=== PATIENT | female | born 1950 | race African-American/Black ===

== ENCOUNTER 2018-12-31 15:59 | Inpatient (IN) | payer MEDICARE, MEDICAID ==
[~2018-12-31] VITALS: Ht 161.3 cm; Wt 65.8 kg
[~2018-12-31 15:59] MED LIST: ASPI-1159 PO; ELAVIL; FERROUS SULFATE; INSU3INS6 SUBCUT; Janumet; MELO-106 PO; OMEP20CA10 PO; TEMA7.5C PO
[2018-12-31] MEDS ORDERED: SODIUM CHLORIDE 0.9% 1,000 ML IV ONE ×2 (16:41→18:30)
[2018-12-31 17:22] LABS: BASOPHILS % 0.9 % (0.0-2.0); EOSINOPHILS % 2.3 % (0.0-5.0); HEMATOCRIT. 28.1 % (36.0-48.0); HEMOGLOBIN. 8.7 g/dL (12.0-16.0); LYMPHOCYTES % 32.9 % (20.0-50.0); MEAN CORPUSCULAR HEMOGLOBIN 27.4 pg (28.0-32.0); MEAN CORPUSCULAR VOLUME 88.2 fL (81.0-99.0); MEAN PLATELET VOLUME 8.9 fl (7.4-10.4); MONOCYTES % 6.6 % (2.0-8.0); NEUTROPHILS % 57.3 % (40.0-76.0); PLATELET 271 x1000/uL (130-400); RED BLOOD CELL COUNT 3.18 mill/uL (4.2-5.4); RED CELL DISTRIBUTION WIDTH 15.2 % (11.6-14.6)
[2018-12-31 17:23] LABS: PROTHROMBIN TIME 9.8 sec (9.1-11.1)
[2018-12-31 17:24] LABS: CHLORIDE 115 mEq/L (98-107)
[2018-12-31 17:48] LABS: CLARITY URINE CLOUDY (CLEAR); COLOR URINE YELLOW (YELLOW); KETONES URINE NEGATIVE (NEGATIVE); LEUKOCYTE ESTERASE URINE 2+ (NEGATIVE); NITRITE URINE POSITIVE (NEGATIVE); OCCULT BLOOD URINE NEGATIVE (NEGATIVE); PROTEIN URINE TRACE (NEGATIVE); SPECIFIC GRAVITY URINE 1.022 (1.005-1.030); UROBILINOGEN URINE 0.2 E.U./dL (0.2-1.0)
[2018-12-31] MEDS ORDERED: LEVOFLOXACIN 750MG PREMIX 150 ML IV ONE (18:30)
[2018-12-31] MEDS ORDERED: GUAIFENESIN 200MG/10ML SUGAR FREE UDC PO PRN (18:45)
[2018-12-31] MEDS ORDERED: ENOXAPARIN 40MG/0.4ML SYR SUBCUT SCH (18:45)
[2018-12-31] MEDS ORDERED: LEVOFLOXACIN 500MG PREMIX 100 ML IV SCH (18:45)
[2018-12-31] MEDS ORDERED: DEXTROSE 50% WATER 50ML SYRINGE IV PRN (18:45)
[2018-12-31] MEDS ORDERED: MAGNESIUM/ALUMINUM HYDROXIDE/SIMETHICONE 30ML UDC PO PRN (18:45)
[2018-12-31] MEDS ORDERED: IPRATROPIUM/ALBUTEROL 0.5-3(2.5)MG/3ML NEB INH PRN (18:45)
[2018-12-31] MEDS ORDERED: DOCUSATE SODIUM 100MG CAPSULE PO PRN (18:45)
[2018-12-31] MEDS ORDERED: NITROGLYCERIN 0.4MG TABLET SL SL PRN (18:45)
[2018-12-31] MEDS ORDERED: CLONIDINE 0.1MG TABLET PO PRN (18:45)
[2018-12-31] MEDS ORDERED: ONDANSETRON HCL 4MG/2ML INJ IV PRN (18:45)
[2018-12-31 19:21] LABS: T4 FREE 0.9 ng/dL (0.76-1.46)
[2018-12-31 19:38] LABS: FOLIC ACID (FOLATE) SERUM 4.9 ng/mL (>5.38)
[2018-12-31] MEDS: TRAMADOL 50MG TABLET PO PRN (20:10)
[2018-12-31 22:15] VITALS: BP 125/80
[2018-12-31] MEDS ORDERED: ZOLPIDEM TARTRATE 5MG TABLET PO PRN (22:46)
[2018-12-31] MEDS: BLOOD SUGAR DIAGNOSTIC STRIP TEST SCH (23:00)
[2018-12-31] MEDS: INSULIN LISPRO 100 UNITS/ML SUBCUT SCH (23:00)
[2019-01-01] MEDS ORDERED: CEFTRIAXONE 1 G PREMIX 50 ML IV SCH
[2019-01-01] MEDS: ASCORBIC ACID 500 MG TABLET PO SCH ×3 (00:01→20:50)
[2019-01-01] MEDS: SODIUM CHLORIDE 0.9% 1,000 ML IV SCH ×3 (00:05→20:52)
[2019-01-01 00:47] LABS: CREATINE KINASE 124 IU/L (26-192)
[2019-01-01 00:48] LABS: CREATINE KINASE MB FRACTION 2.7 ng/mL (0.5-3.6)
[2019-01-01 04:00] VITALS: BP 111/63
[2019-01-01] MEDS: BLOOD SUGAR DIAGNOSTIC STRIP TEST SCH ×3 (06:15→20:48)
[2019-01-01] MEDS: INSULIN LISPRO 100 UNITS/ML SUBCUT SCH ×3 (06:15→20:49)
[2019-01-01 07:19] LABS: CREATINE KINASE 100 IU/L (26-192)
[2019-01-01 07:21] LABS: CREATINE KINASE MB FRACTION 2.4 ng/mL (0.5-3.6)
[2019-01-01 08:00] VITALS: BP 111/63
[2019-01-01] MEDS: ENOXAPARIN 30MG/0.3ML SYR SUBCUT SCH (09:43)
[2019-01-01] MEDS: ZINC SULFATE 220 MG ( 50 ) CAPSULE PO SCH (09:44)
[2019-01-01] MEDS: FAMOTIDINE 20MG TABLET PO SCH (09:44)
[2019-01-01] MEDS: ACETAMINOPHEN 325MG TABLET PO PRN (09:45)
[2019-01-01] MEDS: ASPIRIN 325MG EC TABLET PO SCH (09:52)
[2019-01-01 12:00] VITALS: BP 116/81
[2019-01-01] MEDS ORDERED: FOLIC ACID 1 MG in SODIUM CHLORIDE 0.9% 500 ML IV NR (14:00)
[2019-01-01] MEDS: CEFTRIAXONE 1,000 MG in DEXTROSE 5% WATER 50 ML IV SCH (15:30)
[2019-01-01 16:00] VITALS: BP 128/74
[2019-01-01 20:00] VITALS: BP 145/70
[2019-01-01] MEDS: TRAMADOL 50MG TABLET PO PRN (20:51)
[2019-01-02] VITALS: BP 130/75
[2019-01-02 04:00] VITALS: BP 111/60
[2019-01-02] MEDS: SODIUM CHLORIDE 0.9% 1,000 ML IV SCH ×3 (05:50→21:08)
[2019-01-02] MEDS: ASPIRIN 325MG EC TABLET PO SCH (09:41)
[2019-01-02] MEDS: ZINC SULFATE 220 MG ( 50 ) CAPSULE PO SCH (09:41)
[2019-01-02] MEDS: FOLIC ACID 1MG TABLET PO SCH (09:41)
[2019-01-02] MEDS: FAMOTIDINE 20MG TABLET PO SCH (09:41)
[2019-01-02] MEDS: ASCORBIC ACID 500 MG TABLET PO SCH ×2 (09:41→20:58)
[2019-01-02] MEDS: ENOXAPARIN 30MG/0.3ML SYR SUBCUT SCH (09:42)
[2019-01-02] MEDS: ACETAMINOPHEN 325MG TABLET PO PRN ×2 (09:47→20:57)
[2019-01-02] MEDS: INSULIN LISPRO 100 UNITS/ML SUBCUT SCH ×4 (11:30→21:00)
[2019-01-02] MEDS: BLOOD SUGAR DIAGNOSTIC STRIP TEST SCH ×4 (11:30→21:07)
[2019-01-02] MEDS: CEFTRIAXONE 1,000 MG in DEXTROSE 5% WATER 50 ML IV SCH (12:26)
[2019-01-02 20:00] VITALS: BP 165/85
[2019-01-02] MEDS ORDERED: LEVOFLOXACIN 250MG PREMIX 50 ML IV SCH (21:00)
[2019-01-03] VITALS: BP 159/80
[2019-01-03 04:00] VITALS: BP 155/81
[2019-01-03] MEDS: BLOOD SUGAR DIAGNOSTIC STRIP TEST SCH ×4 (06:01→21:27)
[2019-01-03] MEDS: INSULIN LISPRO 100 UNITS/ML SUBCUT SCH ×4 (07:40→21:00)
[2019-01-03 08:00] VITALS: BP 176/87
[2019-01-03] MEDS: FOLIC ACID 1MG TABLET PO SCH (08:25)
[2019-01-03] MEDS: ENOXAPARIN 30MG/0.3ML SYR SUBCUT SCH (08:25)
[2019-01-03] MEDS: ZINC SULFATE 220 MG ( 50 ) CAPSULE PO SCH (08:25)
[2019-01-03] MEDS: ASCORBIC ACID 500 MG TABLET PO SCH ×2 (08:26→21:20)
[2019-01-03] MEDS: ASPIRIN 325MG EC TABLET PO SCH (08:35)
[2019-01-03] MEDS: FAMOTIDINE 20MG TABLET PO SCH (08:35)
[2019-01-03] MEDS: SODIUM CHLORIDE 0.9% 1,000 ML IV SCH (10:47)
[2019-01-03] MEDS: CEFTRIAXONE 1,000 MG in DEXTROSE 5% WATER 50 ML IV SCH (11:50)
[2019-01-03] MEDS: ACETAMINOPHEN 325MG TABLET PO PRN (18:33)
[2019-01-03 20:00] VITALS: BP 134/83
[2019-01-03] MEDS: TRAMADOL 50MG TABLET PO PRN (21:20)
[2019-01-04] VITALS: BP 133/70
[2019-01-04 04:00] VITALS: BP 135/81
[2019-01-04] MEDS: INSULIN LISPRO 100 UNITS/ML SUBCUT SCH (06:27)
[2019-01-04] MEDS: BLOOD SUGAR DIAGNOSTIC STRIP TEST SCH (06:27)
[2019-01-04 08:00] VITALS: BP 142/77
[2019-01-04] MEDS: ZINC SULFATE 220 MG ( 50 ) CAPSULE PO SCH (08:23)
[2019-01-04] MEDS: FOLIC ACID 1MG TABLET PO SCH (08:23)
[2019-01-04] MEDS: ASCORBIC ACID 500 MG TABLET PO SCH (08:23)
[2019-01-04] MEDS: ENOXAPARIN 30MG/0.3ML SYR SUBCUT SCH (08:23)
[2019-01-04] MEDS: FAMOTIDINE 20MG TABLET PO SCH (08:23)
[2019-01-04] MEDS: ASPIRIN 325MG EC TABLET PO SCH (08:23)
== END 2019-01-04 11:50 | disposition home or self-care (01) | DRG 689 ==
LOC: ER 16:35 → 8WST 18:30 → EDBEDREQ 18:38 → SUPCPDRO 18:39 → ENRESERV 20:49
PROVIDERS: ADMIT Internal Medicine; ATTEND Internal Medicine
DX: N39.0 Urinary tract infection, site not specified (principal); N17.0 Acute kidney failure with tubular necrosis; D63.8 Anemia in other chronic diseases classified elsewhere; E86.0 Dehydration; Z96.659 Presence of unspecified artificial knee joint; E83.51 Hypocalcemia; E11.649 Type 2 diabetes mellitus with hypoglycemia without coma; I10 Essential (primary) hypertension; D52.9 Folate deficiency anemia, unspecified; E83.52 Hypercalcemia; Z79.4 Long term (current) use of insulin; Z86.73 Personal history of transient ischemic attack (TIA), and cerebral infarction without residual deficits; Z98.84 Bariatric surgery status; Z88.0 Allergy status to penicillin; Z88.5 Allergy status to narcotic agent; Z88.8 Allergy status to other drugs, medicaments and biological substances; Z79.84 Long term (current) use of oral hypoglycemic drugs
CPT/HCPCS: 36415; 71045; 82550; 82553; 82607; 82746; 82962; 83540; 83550; 83605; 84439; 84443; 84484; 93005; 93306; 93970; 96374; 96375; 97162; 97166; 99285; C1893; J0696; J1650; J1956; J3490; J7030; J7040; J7060

== ENCOUNTER 2019-01-13 13:40 | Inpatient (IN) | payer MEDICARE, MEDICAID ==
[~2019-01-13] VITALS: Ht 160 cm; Wt 64.6 kg
[2019-01-13 16:14] LABS: BASOPHILS % 0.4 % (0.0-2.0); EOSINOPHILS % 2.5 % (0.0-5.0); HEMATOCRIT. 27.2 % (36.0-48.0); LYMPHOCYTES % 30.6 % (20.0-50.0); MEAN CORPUSCULAR HEMOGLOBIN 28.2 pg (28.0-32.0); MEAN CORPUSCULAR VOLUME 85.1 fL (81.0-99.0); MEAN PLATELET VOLUME 8.5 fl (7.4-10.4); MONOCYTES % 6.9 % (2.0-8.0); NEUTROPHILS % 59.6 % (40.0-76.0); PLATELET 257 x1000/uL (130-400); RED CELL DISTRIBUTION WIDTH 14.6 % (11.6-14.6)
[2019-01-13 16:15] LABS: CHLORIDE 115 mEq/L (98-107)
[2019-01-13] MEDS ORDERED: ONDANSETRON HCL 4MG/2ML INJ IV PRN (18:30)
[2019-01-13] MEDS ORDERED: ACETAMINOPHEN 325MG TABLET PO PRN (18:30)
[2019-01-13] MEDS ORDERED: GUAIFENESIN 200MG/10ML SUGAR FREE UDC PO PRN (18:30)
[2019-01-13] MEDS ORDERED: IPRATROPIUM/ALBUTEROL 0.5-3(2.5)MG/3ML NEB INH PRN (18:30)
[2019-01-13] MEDS ORDERED: NITROGLYCERIN 0.4MG TABLET SL SL PRN (18:30)
[2019-01-13] MEDS ORDERED: MAGNESIUM/ALUMINUM HYDROXIDE/SIMETHICONE 30ML UDC PO PRN (18:30)
[2019-01-13] MEDS ORDERED: DOCUSATE SODIUM 100MG CAPSULE PO PRN (18:30)
[2019-01-13] MEDS ORDERED: TRAMADOL 50MG TABLET PO PRN (18:30)
[2019-01-13] MEDS ORDERED: ZOLPIDEM TARTRATE 5MG TABLET PO PRN (18:30)
[2019-01-13] MEDS ORDERED: CLONIDINE 0.1MG TABLET PO PRN (18:30)
[2019-01-13 18:51] LABS: ETHANOL BLOOD < 10 mg/dL
[2019-01-13 18:54] LABS: LDL CHOLESTEROL 86 mg/dL (5-100)
[2019-01-13 18:56] LABS: HDL CHOLESTEROL 54 mg/dL (40-59)
[2019-01-13] MEDS ORDERED: MVI, ADULT NO.1 10 ML, FOLIC ACID 1 MG, THIAMINE HCL 100 MG in SODIUM CHLORIDE 0.9% 1,0... IV SCH ×4 (20:00)
[2019-01-13 22:00] VITALS: BP 126/72
[2019-01-13] MEDS: FAMOTIDINE 20MG TABLET PO SCH (22:39)
[2019-01-13] MEDS ORDERED: DEXTROSE 50% WATER 50ML SYRINGE IV PRN (22:45)
[2019-01-13] MEDS ORDERED: ENOXAPARIN 30MG/0.3ML SYR SUBCUT SCH (23:00)
[2019-01-14] VITALS: BP 118/63
[2019-01-14] MEDS ORDERED: ASCO-339 PO (00:49)
[2019-01-14] MEDS ORDERED: HYDR25TA PO (00:49)
[2019-01-14] MEDS ORDERED: GABA-531 PO (00:49)
[2019-01-14] MEDS ORDERED: FLEX (00:49)
[2019-01-14] MEDS ORDERED: ESOM40CA53 PO (00:49)
[2019-01-14] MEDS ORDERED: CETI10TA10 PO (00:50)
[2019-01-14] MEDS ORDERED: FLEXERIL PO (00:50)
[2019-01-14 01:11] LABS: CREATINE KINASE 84 IU/L (26-192)
[2019-01-14 01:12] LABS: CREATINE KINASE MB FRACTION 1.3 ng/mL (0.5-3.6)
[2019-01-14 04:00] VITALS: BP 109/66
[2019-01-14 04:56] LABS: CLARITY URINE CLEAR (CLEAR); COLOR URINE YELLOW (YELLOW); KETONES URINE NEGATIVE (NEGATIVE); LEUKOCYTE ESTERASE URINE 2+ (NEGATIVE); NITRITE URINE NEGATIVE (NEGATIVE); OCCULT BLOOD URINE NEGATIVE (NEGATIVE); PH URINE 5.5 (4.5-8.0); PROTEIN URINE NEGATIVE (NEGATIVE); SPECIFIC GRAVITY URINE 1.017 (1.005-1.030); UROBILINOGEN URINE 0.2 E.U./dL (0.2-1.0)
[2019-01-14 05:07] LABS: *AMPHETAMINES SCREEN URINE NEGATIVE (NEGATIVE); *BARBITURATES SCREEN URINE NEGATIVE (NEGATIVE); *BENZODIAZEPINES SCREEN URINE PRESUMTIVE POSITIVE (NEGATIVE); *COCAINE SCREEN URINE NEGATIVE (NEGATIVE); METHADONE URINE SCREEN NEGATIVE (NEGATIVE); OPIATES URINE SCREEN PRESUMTIVE POSITIVE (NEGATIVE); PHENCYCLIDINE URINE SCREEN NEGATIVE (NEGATIVE)
[2019-01-14 05:08] LABS: CANNABINOID URINE SCREEN NEGATIVE (NEGATIVE)
[2019-01-14] MEDS: BLOOD SUGAR DIAGNOSTIC STRIP TEST SCH ×4 (06:19→21:41)
[2019-01-14 07:45] LABS: BASOPHILS % 0.6 % (0.0-2.0); EOSINOPHILS % 3.3 % (0.0-5.0); HEMATOCRIT. 25.2 % (36.0-48.0); HEMOGLOBIN. 8.3 g/dL (12.0-16.0); LYMPHOCYTES % 25.5 % (20.0-50.0); MEAN CORPUSCULAR HEMOGLOBIN 28.1 pg (28.0-32.0); MEAN CORPUSCULAR VOLUME 85.9 fL (81.0-99.0); MEAN PLATELET VOLUME 8.5 fl (7.4-10.4); MONOCYTES % 7.2 % (2.0-8.0); NEUTROPHILS % 63.4 % (40.0-76.0); PLATELET 246 x1000/uL (130-400); RED BLOOD CELL COUNT 2.94 mill/uL (4.2-5.4); RED CELL DISTRIBUTION WIDTH 14.2 % (11.6-14.6)
[2019-01-14] MEDS: INSULIN LISPRO 100 UNITS/ML SUBCUT SCH ×4 (07:50→21:00)
[2019-01-14 08:00] VITALS: BP 109/49
[2019-01-14] MEDS ORDERED: ENOXAPARIN 30MG/0.3ML SYR SUBCUT SCH (09:00)
[2019-01-14] MEDS: ASPIRIN 325MG EC TABLET PO SCH (09:09)
[2019-01-14 09:18] LABS: CHLORIDE 118 mEq/L (98-107)
[2019-01-14 09:27] LABS: CREATINE KINASE 72 IU/L (26-192)
[2019-01-14 09:30] LABS: CREATINE KINASE MB FRACTION 1.1 ng/mL (0.5-3.6)
[2019-01-14] MEDS: SUCRALFATE 1 G/10 ML UDC PO SCH ×3 (11:47→21:41)
[2019-01-14] MEDS ORDERED: PNEUMOCOCCAL 23-VAL P-SAC VAC 0.5 ML IM ONE (12:00)
[2019-01-14 12:22] VITALS: BP 104/57
[2019-01-14 17:09] VITALS: BP 107/61
[2019-01-14 20:31] VITALS: BP 106/55
[2019-01-14] MEDS: FAMOTIDINE 20MG TABLET PO SCH (21:41)
[2019-01-14] MEDS: TEMAZEPAM 15MG CAPSULE PO PRN (21:41)
[2019-01-15 00:43] VITALS: BP 101/53
[2019-01-15 04:00] VITALS: BP 97/57
[2019-01-15] MEDS: BLOOD SUGAR DIAGNOSTIC STRIP TEST SCH ×2 (07:00→21:31)
[2019-01-15] MEDS: INSULIN LISPRO 100 UNITS/ML SUBCUT SCH ×2 (07:00→21:00)
[2019-01-15] MEDS: SUCRALFATE 1 G/10 ML UDC PO SCH ×3 (07:00→21:30)
[2019-01-15] MEDS: ASPIRIN 325MG EC TABLET PO SCH (08:13)
[2019-01-15 08:47] VITALS: BP 102/58
[2019-01-15 12:22] VITALS: BP 105/55
[2019-01-15] MEDS ORDERED: MIDAZOLAM HCL 5 MG/5 ML VIAL ONE (14:09)
[2019-01-15] MEDS ORDERED: FENTANYL CITRATE/PF 50MCG/ML 2ML VIAL ONE (14:10)
[2019-01-15] MEDS ORDERED: MIDAZOLAM HCL 5 MG/5 ML VIAL IV PRN (14:11)
[2019-01-15] MEDS ORDERED: FENTANYL CITRATE/PF 50MCG/ML 2ML VIAL IV PRN (14:12)
[2019-01-15] MEDS ORDERED: SIMETHICONE 40 MG/0.6 ML 30ML ONE (14:13)
[2019-01-15] MEDS ORDERED: SODIUM CHLORIDE 0.9% 10ML VIAL ONE (15:45)
[2019-01-15 16:52] VITALS: BP 112/63
[2019-01-15 20:00] VITALS: BP 119/77
[2019-01-15] MEDS: PANTOPRAZOLE SODIUM 40 MG/VIAL IV SCH (21:31)
[2019-01-16] VITALS: BP 114/47
[2019-01-16] MEDS: TEMAZEPAM 15MG CAPSULE PO PRN ×2 (01:24→23:55)
[2019-01-16 04:00] VITALS: BP 104/52
[2019-01-16] MEDS: SUCRALFATE 1 G/10 ML UDC PO SCH ×4 (06:20→20:10)
[2019-01-16] MEDS: INSULIN LISPRO 100 UNITS/ML SUBCUT SCH ×4 (07:36→20:28)
[2019-01-16] MEDS: BLOOD SUGAR DIAGNOSTIC STRIP TEST SCH ×4 (07:36→20:28)
[2019-01-16 08:00] VITALS: BP 95/53
[2019-01-16] MEDS: PANTOPRAZOLE SODIUM 40 MG/VIAL IV SCH ×2 (08:58→20:10)
[2019-01-16] MEDS: ASPIRIN 325MG EC TABLET PO SCH (08:58)
[2019-01-16 12:00] VITALS: BP 102/55
[2019-01-16 16:00] VITALS: BP 102/64
[2019-01-16 20:00] VITALS: BP 95/65
[2019-01-17] VITALS: BP 107/64
[2019-01-17 04:00] VITALS: BP 115/52
[2019-01-17] MEDS: SUCRALFATE 1 G/10 ML UDC PO SCH ×2 (06:24→12:20)
[2019-01-17] MEDS: BLOOD SUGAR DIAGNOSTIC STRIP TEST SCH ×2 (07:02→12:38)
[2019-01-17] MEDS: INSULIN LISPRO 100 UNITS/ML SUBCUT SCH ×2 (07:12→12:38)
[2019-01-17 08:00] VITALS: BP 111/66
[2019-01-17] MEDS: ASPIRIN 325MG EC TABLET PO SCH (08:58)
[2019-01-17] MEDS: PANTOPRAZOLE SODIUM 40 MG/VIAL IV SCH (08:58)
[2019-01-17 10:06] VITALS: BP 111/66
[2019-01-17 12:00] VITALS: BP 105/60
[2019-01-17] MEDS ORDERED: ENOXAPARIN 30MG/0.3ML SYR SUBCUT SCH (17:00)
== END 2019-01-17 13:52 | disposition home health service (06) | DRG 312 ==
LOC: ER 14:29 → 6WST 17:40 → EDBEDREQ 17:47 → ENRESERV 20:02
PROVIDERS: ADMIT Internal Medicine; ATTEND Internal Medicine
PROC: 0DB58ZX Excision of Esophagus, Via Natural or Artificial Opening Endoscopic, Diagnostic (ICD-10-PCS; principal; 2019-01-15)
DX: R55 Syncope and collapse (principal); N17.0 Acute kidney failure with tubular necrosis; D52.9 Folate deficiency anemia, unspecified; R79.1 Abnormal coagulation profile; N18.9 Chronic kidney disease, unspecified; E11.22 Type 2 diabetes mellitus with diabetic chronic kidney disease; I12.9 Hypertensive chronic kidney disease with stage 1 through stage 4 chronic kidney disease, or unspecified chronic kidney disease; Z96.659 Presence of unspecified artificial knee joint; R13.10 Dysphagia, unspecified; Z79.4 Long term (current) use of insulin; Z98.84 Bariatric surgery status; Z91.81 History of falling; I25.2 Old myocardial infarction; Z86.73 Personal history of transient ischemic attack (TIA), and cerebral infarction without residual deficits; Z90.710 Acquired absence of both cervix and uterus; Z88.0 Allergy status to penicillin; Z88.6 Allergy status to analgesic agent; Z90.49 Acquired absence of other specified parts of digestive tract; Z79.899 Other long term (current) drug therapy
CPT/HCPCS: 36415; 70551; 71045; 71250; 76770; 78582; 80061; 80305; 80320; 82550; 82553; 82962; 83036; 83880; 84484; 85379; 88305; 88312; 90732; 93005; 96365; 96372; 97161; 99285; A9558; C9113; J1650; J2250; J3010; J3411; J3490; J7030; G0480

== ENCOUNTER 2019-05-26 16:54 | Emergency (ER) | payer MEDICARE, MEDICAID ==
[~2019-05-26] VITALS: Ht 160 cm; Wt 63.0 kg
[~2019-05-26 16:54] MED LIST changes: +ASCO-339 PO; -ASPI-1159 PO; +ASPI-1393 PO; +CETI10TA10 PO; -ELAVIL; +ESOM40CA53 PO; -FERROUS SULFATE; +FLEXERIL PO; +GABA-531 PO; +HYDR25TA PO; -Janumet; -OMEP20CA10 PO; +OMEP20CA5 PO
[2019-05-26] MEDS ORDERED: ACETAMINOPHEN WITH CODEINE 300/30MG TABLET PO STA (17:15)
[2019-05-26] MEDS ORDERED: SODIUM CHLORIDE 0.9% 1,000 ML IV ONE (17:15)
[2019-05-26 17:30] LABS: HEMATOCRIT. 30.4 % (36.0-48.0); HEMOGLOBIN. 9.4 g/dL (12.0-16.0); MEAN CORPUSCULAR HEMOGLOBIN 24.1 pg (28.0-32.0); MEAN CORPUSCULAR VOLUME 78.2 fL (81.0-99.0); MEAN PLATELET VOLUME 9.3 fl (7.4-10.4); PLATELET 294 x1000/uL (130-400); RED BLOOD CELL COUNT 3.88 mill/uL (4.2-5.4)
[2019-05-26 17:33] LABS: CHLORIDE 110 mEq/L (98-107)
[2019-05-26 17:53] LABS: PLATELET ESTIMATE NORMAL
[2019-05-26] MEDS ORDERED: ACETAMINOPHEN 325MG TABLET PO ONE (19:30)
[2019-05-26] MEDS ORDERED: POTASSIUM CHLORIDE 20MEQ TABLET SR PO ONE (19:45)
[2019-05-26 20:17] VITALS: BP 142/79
== END 2019-05-26 20:18 | disposition home or self-care (01) ==
LOC: ER 18:02
DX: R55 Syncope and collapse (principal); S00.83XA Contusion of other part of head, initial encounter; E87.6 Hypokalemia; E11.9 Type 2 diabetes mellitus without complications; I11.0 Hypertensive heart disease with heart failure; Z88.0 Allergy status to penicillin; Z88.5 Allergy status to narcotic agent; Z85.07 Personal history of malignant neoplasm of pancreas; Z79.82 Long term (current) use of aspirin; Z86.73 Personal history of transient ischemic attack (TIA), and cerebral infarction without residual deficits; Z79.4 Long term (current) use of insulin; Z90.49 Acquired absence of other specified parts of digestive tract; Z98.84 Bariatric surgery status; W01.0XXA Fall on same level from slipping, tripping and stumbling without subsequent striking against object, initial encounter; Y93.89 Activity, other specified; Y92.018 Other place in single-family (private) house as the place of occurrence of the external cause
CPT/HCPCS: 36415; 70450; 80053; 85025; 93005; 96360; 99284; J7030

== ENCOUNTER 2019-07-27 10:41 | Inpatient (IN) | payer MEDICARE, MEDICAID ==
[~2019-07-27] VITALS: Ht 160 cm; Wt 58.1 kg
[2019-07-27 11:52] LABS: HEMATOCRIT. 32.9 % (36.0-48.0); HEMOGLOBIN. 10.1 g/dL (12.0-16.0); MEAN CORPUSCULAR HEMOGLOBIN 23.1 pg (28.0-32.0); MEAN CORPUSCULAR VOLUME 75.3 fL (81.0-99.0); MEAN PLATELET VOLUME 8.3 fl (7.4-10.4); PLATELET 453 x1000/uL (130-400); RED BLOOD CELL COUNT 4.37 mill/uL (4.2-5.4); RED CELL DISTRIBUTION WIDTH 23.3 % (11.6-14.6)
[2019-07-27 12:00] LABS: CHLORIDE 116 mEq/L (98-107)
[2019-07-27] MEDS ORDERED: METHYLPREDNISOLONE SOD SUCC 125 MG/2 ML VIAL IV STA (12:16)
[2019-07-27] MEDS ORDERED: ALBUTEROL (0.083%) 2.5MG/3ML NEB HHN STA (12:16)
[2019-07-27 12:25] LABS: NUCLEATED RED BLOOD CELLS 20 /100 WBC; PLATELET ESTIMATE INCREASED
[2019-07-27] MEDS ORDERED: SODIUM CHLORIDE 0.9% 1,000 ML IV SCH (12:51)
[2019-07-27 16:00] VITALS: BP 134/82
[2019-07-27] MEDS ORDERED: INSU100I19 SQ (16:23)
[2019-07-27] MEDS ORDERED: METF-414 MT (16:23)
[2019-07-27] MEDS ORDERED: MIRT15TA6 MT (16:23)
[2019-07-27] MEDS ORDERED: DOCU-150 MT (16:23)
[2019-07-27] MEDS ORDERED: LIRA0.6P SQ ×2 (16:23)
[2019-07-27] MEDS ORDERED: ESCI5SOL2 MT (16:25)
[2019-07-27] MEDS ORDERED: ACETAMINOPHEN 325MG TABLET PO PRN (16:30)
[2019-07-27] MEDS ORDERED: DOCUSATE SODIUM 100MG CAPSULE PO PRN (16:30)
[2019-07-27] MEDS ORDERED: DEXTROSE 50% WATER 50ML SYRINGE IV PRN ×2 (16:30)
[2019-07-27] MEDS ORDERED: MAGNESIUM/ALUMINUM HYDROXIDE/SIMETHICONE 30ML UDC PO PRN (16:30)
[2019-07-27] MEDS ORDERED: IPRATROPIUM/ALBUTEROL 0.5-3(2.5)MG/3ML NEB NEB PRN (16:30)
[2019-07-27] MEDS ORDERED: GUAIFENESIN 200MG/10ML SUGAR FREE UDC PO PRN (16:30)
[2019-07-27] MEDS ORDERED: DIPHENHYDRAMINE 50MG/ML VIAL IV PRN (16:30)
[2019-07-27] MEDS ORDERED: CLONIDINE 0.1MG TABLET PO PRN (16:30)
[2019-07-27] MEDS: BLOOD SUGAR DIAGNOSTIC STRIP TEST SCH ×2 (17:10→21:00)
[2019-07-27] MEDS ORDERED: IPRATROPIUM/ALBUTEROL 0.5-3(2.5)MG/3ML NEB HHN PRN (17:30)
[2019-07-27] MEDS: INSULIN LISPRO 100 UNITS/ML SUBCUT SCH ×2 (17:40→21:00)
[2019-07-27] MEDS ORDERED: IOHEXOL-350 100 ML BOTTLE ONE (17:49)
[2019-07-27] MEDS ORDERED: ENOXAPARIN 40MG/0.4ML SYR SUBCUT SCH (18:00)
[2019-07-27] MEDS: ENOXAPARIN 60MG/0.6ML SYR SUBCUT SCH (18:43)
[2019-07-27] MEDS: METFORMIN HCL 500MG TABLET PO SCH (18:43)
[2019-07-27 19:24] LABS: C REACTIVE PROTEIN QUANT 2.2 mg/L (0.0-3.0)
[2019-07-27 20:00] VITALS: BP 168/98
[2019-07-27] MEDS: IPRATROPIUM/ALBUTEROL 0.5-3(2.5)MG/3ML NEB HHN SCH (20:53)
[2019-07-27] MEDS ORDERED: INSULIN GLARGINE UD 100 UNITS/ML SYR SUBCUT SCH (22:00)
[2019-07-27] MEDS: METHYLPREDNISOLONE SOD SUCC 40 MG/ML VIAL IV SCH (22:30)
[2019-07-27] MEDS: MIRTAZAPINE 15MG TABLET PO SCH (22:31)
[2019-07-27] MEDS: LIDOCAINE 5% PATCH TOP SCH (22:31)
[2019-07-27] MEDS: FAMOTIDINE 20MG TABLET PO SCH (22:31)
[2019-07-28] VITALS: BP 134/69
[2019-07-28] MEDS: IPRATROPIUM/ALBUTEROL 0.5-3(2.5)MG/3ML NEB HHN SCH ×6 (00:15→20:40)
[2019-07-28] MEDS ORDERED: TEMAZEPAM 15MG CAPSULE PO PRN (01:30)
[2019-07-28 03:08] LABS: CLARITY URINE CLEAR (CLEAR); COLOR URINE YELLOW (YELLOW); KETONES URINE NEGATIVE (NEGATIVE); LEUKOCYTE ESTERASE URINE NEGATIVE (NEGATIVE); NITRITE URINE NEGATIVE (NEGATIVE); OCCULT BLOOD URINE NEGATIVE (NEGATIVE); PH URINE 5.5 (4.5-8.0); PROTEIN URINE TRACE (NEGATIVE); SPECIFIC GRAVITY URINE 1.054 (1.005-1.030); UROBILINOGEN URINE 0.2 E.U./dL (0.2-1.0)
[2019-07-28 04:00] VITALS: BP 132/79
[2019-07-28] MEDS: ENOXAPARIN 60MG/0.6ML SYR SUBCUT SCH ×2 (05:52→18:12)
[2019-07-28] MEDS: METHYLPREDNISOLONE SOD SUCC 40 MG/ML VIAL IV SCH ×3 (05:52→22:15)
[2019-07-28] MEDS: METFORMIN HCL 500MG TABLET PO SCH ×2 (05:52→18:12)
[2019-07-28] MEDS: KETOROLAC 30MG/ML VIAL IV PRN ×2 (06:00→18:12)
[2019-07-28] MEDS: BLOOD SUGAR DIAGNOSTIC STRIP TEST SCH ×4 (06:42→21:00)
[2019-07-28] MEDS: INSULIN LISPRO 100 UNITS/ML SUBCUT SCH ×4 (06:47→21:00)
[2019-07-28 06:57] LABS: HEMATOCRIT. 30.5 % (36.0-48.0); HEMOGLOBIN. 9.5 g/dL (12.0-16.0); MEAN CORPUSCULAR HEMOGLOBIN 23.1 pg (28.0-32.0); MEAN CORPUSCULAR VOLUME 74.6 fL (81.0-99.0); MEAN PLATELET VOLUME 8.7 fl (7.4-10.4); PLATELET 410 x1000/uL (130-400); RED CELL DISTRIBUTION WIDTH 23.3 % (11.6-14.6)
[2019-07-28 07:05] LABS: PROTHROMBIN TIME 10.6 sec (9.6-11.0)
[2019-07-28 08:00] VITALS: BP 134/74
[2019-07-28] MEDS: CETIRIZINE 10MG TABLET PO SCH (09:26)
[2019-07-28] MEDS: AMLODIPINE 5MG TABLET PO SCH (09:27)
[2019-07-28] MEDS: LIDOCAINE 5% PATCH TOP SCH (09:27)
[2019-07-28 09:36] LABS: CHLORIDE 115 mEq/L (98-107)
[2019-07-28 09:45] LABS: PHOSPHORUS 3.5 mg/dL (2.5-4.9)
[2019-07-28 11:14] LABS: NUCLEATED RED BLOOD CELLS 22 /100 WBC; PLATELET ESTIMATE NORMAL
[2019-07-28 16:00] VITALS: BP 114/60
[2019-07-28 20:00] VITALS: BP 126/74
[2019-07-28] MEDS: FAMOTIDINE 20MG TABLET PO SCH (21:51)
[2019-07-28] MEDS: MIRTAZAPINE 15MG TABLET PO SCH (22:19)
[2019-07-29] VITALS: BP 116/62
[2019-07-29] MEDS: IPRATROPIUM/ALBUTEROL 0.5-3(2.5)MG/3ML NEB HHN SCH ×6 (00:58→20:45)
[2019-07-29 04:00] VITALS: BP 129/77
[2019-07-29] MEDS: BLOOD SUGAR DIAGNOSTIC STRIP TEST SCH ×4 (05:40→20:57)
[2019-07-29] MEDS: INSULIN LISPRO 100 UNITS/ML SUBCUT SCH ×4 (05:41→21:00)
[2019-07-29] MEDS: ENOXAPARIN 60MG/0.6ML SYR SUBCUT SCH ×2 (05:41→17:22)
[2019-07-29] MEDS: METHYLPREDNISOLONE SOD SUCC 40 MG/ML VIAL IV SCH ×3 (06:37→22:35)
[2019-07-29 07:29] LABS: HEMATOCRIT. 30.6 % (36.0-48.0); HEMOGLOBIN. 9.2 g/dL (12.0-16.0); MEAN CORPUSCULAR HEMOGLOBIN 22.5 pg (28.0-32.0); MEAN CORPUSCULAR VOLUME 75.1 fL (81.0-99.0); MEAN PLATELET VOLUME 8.7 fl (7.4-10.4); PLATELET 407 x1000/uL (130-400); RED BLOOD CELL COUNT 4.07 mill/uL (4.2-5.4); RED CELL DISTRIBUTION WIDTH 23.8 % (11.6-14.6)
[2019-07-29 08:00] VITALS: BP 130/79
[2019-07-29] MEDS: AMLODIPINE 5MG TABLET PO SCH (08:24)
[2019-07-29] MEDS: KETOROLAC 30MG/ML VIAL IV PRN ×2 (08:24)
[2019-07-29] MEDS: CETIRIZINE 10MG TABLET PO SCH (08:24)
[2019-07-29] MEDS: LIDOCAINE 5% PATCH TOP SCH (08:24)
[2019-07-29] MEDS: METFORMIN HCL 500MG TABLET PO SCH ×2 (08:24→17:22)
[2019-07-29 09:55] LABS: NUCLEATED RED BLOOD CELLS 16 /100 WBC; PLATELET ESTIMATE SLIGHTLY INCREASED
[2019-07-29 12:00] VITALS: BP 127/83
[2019-07-29 13:10] LABS: ANTI-NUCLEAR ANTIBODIES DIRECT Negative (Negative)
[2019-07-29 16:36] VITALS: BP 120/74
[2019-07-29 16:46] LABS: PHOSPHORUS 2.3 mg/dL (2.5-4.9)
[2019-07-29 20:00] VITALS: BP 129/69
[2019-07-29] MEDS: MIRTAZAPINE 15MG TABLET PO SCH (21:04)
[2019-07-29] MEDS: FAMOTIDINE 20MG TABLET PO SCH (21:04)
[2019-07-30] MEDS: IPRATROPIUM/ALBUTEROL 0.5-3(2.5)MG/3ML NEB HHN SCH ×4 (02:53→12:00)
[2019-07-30 03:50] VITALS: BP 134/64
[2019-07-30] MEDS: BLOOD SUGAR DIAGNOSTIC STRIP TEST SCH ×2 (05:44→12:14)
[2019-07-30 05:50] VITALS: BP 135/77
[2019-07-30] MEDS: METHYLPREDNISOLONE SOD SUCC 40 MG/ML VIAL IV SCH (05:59)
[2019-07-30] MEDS: ENOXAPARIN 60MG/0.6ML SYR SUBCUT SCH (06:02)
[2019-07-30] MEDS: INSULIN LISPRO 100 UNITS/ML SUBCUT SCH ×2 (06:25→12:14)
[2019-07-30] MEDS: AMLODIPINE 5MG TABLET PO SCH (08:47)
[2019-07-30] MEDS: CETIRIZINE 10MG TABLET PO SCH (08:47)
[2019-07-30] MEDS: METFORMIN HCL 500MG TABLET PO SCH (08:47)
[2019-07-30] MEDS: LIDOCAINE 5% PATCH TOP SCH (08:49)
[2019-07-30 12:38] VITALS: BP 122/68
[2019-07-30 13:11] LABS: ANTI-MYELOPEROXIDASE AB < 9.0 U/mL (0.0-9.0); ANTI-PROTEINASE 3 ABS < 3.5 U/mL (0.0-3.5); ATYPICAL P-ANCA <1:20 titer (Neg:<1:20); CYTOPLASMIC C-ANCA <1:20 titer (Neg:<1:20); PERINUCLEAR P-ANCA <1:20 titer (Neg:<1:20)
== END 2019-07-30 13:16 | disposition home or self-care (01) | DRG 175 ==
LOC: ER 10:51 → 8WST 12:51 → ENRESERV 14:36
PROVIDERS: ADMIT Family Medicine Adult Medicine; ATTEND Family Medicine Adult Medicine
DX: I26.99 Other pulmonary embolism without acute cor pulmonale (principal); J96.00 Acute respiratory failure, unspecified whether with hypoxia or hypercapnia; D50.9 Iron deficiency anemia, unspecified; D52.9 Folate deficiency anemia, unspecified; N18.9 Chronic kidney disease, unspecified; J84.10 Pulmonary fibrosis, unspecified; J43.9 Emphysema, unspecified; E11.22 Type 2 diabetes mellitus with diabetic chronic kidney disease; Z96.659 Presence of unspecified artificial knee joint; M54.5 Low back pain; I27.21 Secondary pulmonary arterial hypertension; I12.9 Hypertensive chronic kidney disease with stage 1 through stage 4 chronic kidney disease, or unspecified chronic kidney disease; I25.10 Atherosclerotic heart disease of native coronary artery without angina pectoris; Z82.49 Family history of ischemic heart disease and other diseases of the circulatory system; Z86.73 Personal history of transient ischemic attack (TIA), and cerebral infarction without residual deficits; Z86.718 Personal history of other venous thrombosis and embolism; I25.2 Old myocardial infarction; Z98.84 Bariatric surgery status; Z95.828 Presence of other vascular implants and grafts; Z90.49 Acquired absence of other specified parts of digestive tract; Z88.0 Allergy status to penicillin; Z88.5 Allergy status to narcotic agent; Z86.711 Personal history of pulmonary embolism; Z82.3 Family history of stroke; Z88.8 Allergy status to other drugs, medicaments and biological substances; Z88.6 Allergy status to analgesic agent; Z79.899 Other long term (current) drug therapy; Z79.4 Long term (current) use of insulin; Z79.82 Long term (current) use of aspirin
CPT/HCPCS: 36415; 71045; 71275; 80048; 81003; 82962; 83036; 83520; 83735; 83880; 84100; 84484; 84550; 85379; 85651; 86038; 86140; 86256; 86431; 93005; 93306; 93970; 94640; 97162; 97166; 99285; J1200; J1650; J1815; J1885; J2920; J2930; J7030; J7611; J7620; Q9967

== ENCOUNTER 2019-09-14 10:34 | Inpatient (IN) | payer MEDICARE, MEDICAID ==
[~2019-09-14] VITALS: Ht 160 cm; Wt 53.1 kg
[~2019-09-14 10:34] MED LIST changes: -ASCO-339 PO; -ASPI-1393 PO; +DOCU-150 MT; +ESCI5SOL2 MT; -FLEXERIL PO; -GABA-531 PO; -HYDR25TA PO; +INSU100I19 SQ; -INSU3INS6 SUBCUT; +LIRA0.6P SQ; -MELO-106 PO; +METF-414 MT; +MIRT15TA6 MT; -OMEP20CA5 PO
[2019-09-14] MEDS ORDERED: ALBUTEROL (0.083%) 2.5MG/3ML NEB HHN STA (10:55)
[2019-09-14] MEDS ORDERED: MAGNESIUM 2 G PREMIX 50 ML IV STA (10:55)
[2019-09-14] MEDS ORDERED: METHYLPREDNISOLONE SOD SUCC 125 MG/2 ML VIAL IV STA (10:55)
[2019-09-14] MEDS ORDERED: IPRATROPIUM BROMIDE (0.02%) 0.5MG/2.5ML NEB HHN STA (10:55)
[2019-09-14 11:37] LABS: HEMATOCRIT. 34.1 % (36.0-48.0); HEMOGLOBIN. 10.3 g/dL (12.0-16.0); MEAN CORPUSCULAR HEMOGLOBIN 23.3 pg (28.0-32.0); MEAN CORPUSCULAR VOLUME 76.9 fL (81.0-99.0); MEAN PLATELET VOLUME 9.2 fl (7.4-10.4); PLATELET 172 x1000/uL (130-400); RED BLOOD CELL COUNT 4.43 mill/uL (4.2-5.4); RED CELL DISTRIBUTION WIDTH 25.7 % (11.6-14.6)
[2019-09-14 11:38] LABS: CHLORIDE 113 mEq/L (98-107)
[2019-09-14] MEDS ORDERED: IPRATROPIUM/ALBUTEROL 0.5-3(2.5)MG/3ML NEB HHN PRN (12:00)
[2019-09-14] MEDS: IPRATROPIUM/ALBUTEROL 0.5-3(2.5)MG/3ML NEB HHN SCH ×2 (12:00→16:00)
[2019-09-14] MEDS ORDERED: METHYLPREDNISOLONE SOD SUCC 40 MG/ML VIAL IV SCH (12:00)
[2019-09-14] MEDS ORDERED: GUAIFENESIN-DM 200MG-20MG/10ML UDC PO PRN (12:00)
[2019-09-14] MEDS ORDERED: ONDANSETRON HCL 4MG/2ML INJ IV PRN (12:00)
[2019-09-14 12:46] LABS: PLATELET ESTIMATE NORMAL
[2019-09-14] MEDS ORDERED: DEXTROSE 50% WATER 50ML SYRINGE IV ONE (13:00)
[2019-09-14 16:50] LABS: PHOSPHORUS 2.6 mg/dL (2.5-4.9)
[2019-09-14 17:18] LABS: D-DIMER 0.32 mg/L FEU (<0.50); PARTIAL THROMBOPLASTIN TIME 28.7 sec (23.4-31.0); PROTHROMBIN TIME 10.4 sec (9.6-11.0)
[2019-09-14 17:21] LABS: VITAMIN B12 SERUM 394 pg/mL (211-911)
[2019-09-14 17:45] LABS: FERRITIN 50 ng/mL (10-291)
[2019-09-14 18:13] VITALS: BP 141/87
[2019-09-14] MEDS: METHYLPREDNISOLONE SOD SUCC 40 MG/ML VIAL IV SCH (18:38)
[2019-09-14] MEDS: DIATR MEGLU/DIATRIZOATE SOLN 30ML PO NR ×2 (18:58→20:11)
[2019-09-14] MEDS ORDERED: MAGNESIUM 2 G PREMIX 50 ML IV NR (19:00)
[2019-09-14 20:00] VITALS: BP 131/92
[2019-09-14] MEDS: LORATADINE 10MG TABLET PO SCH (20:12)
[2019-09-14] MEDS: FLUTICASONE PROPIONATE 50MCG/SPRAY BOTTLE BOTHNSTRLS SCH (20:12)
[2019-09-14] MEDS: FAMOTIDINE 20MG/2ML VIAL IV SCH (20:12)
[2019-09-14] MEDS: APIXABAN 5 MG TABLET PO SCH (22:32)
[2019-09-14] MEDS ORDERED: IOHEXOL-350 100 ML BOTTLE ONE (23:28)
[2019-09-15] VITALS: BP 134/86
[2019-09-15] MEDS: TEMAZEPAM 15MG CAPSULE PO PRN (00:50)
[2019-09-15] MEDS: METHYLPREDNISOLONE SOD SUCC 40 MG/ML VIAL IV SCH ×3 (03:43→18:02)
[2019-09-15 04:00] VITALS: BP 140/89
[2019-09-15 05:51] LABS: HEMATOCRIT. 28.9 % (36.0-48.0); MEAN CORPUSCULAR HEMOGLOBIN 23.5 pg (28.0-32.0); MEAN PLATELET VOLUME 9.4 fl (7.4-10.4); PLATELET 147 x1000/uL (130-400); RED BLOOD CELL COUNT 3.85 mill/uL (4.2-5.4); RED CELL DISTRIBUTION WIDTH 25.6 % (11.6-14.6)
[2019-09-15 05:58] LABS: CHLORIDE 108 mEq/L (98-107)
[2019-09-15] MEDS: ACETAMINOPHEN 325MG TABLET PO PRN ×3 (06:41→21:38)
[2019-09-15 07:43] LABS: CLARITY URINE CLEAR (CLEAR); COLOR URINE YELLOW (YELLOW); KETONES URINE NEGATIVE (NEGATIVE); LEUKOCYTE ESTERASE URINE TRACE (NEGATIVE); NITRITE URINE NEGATIVE (NEGATIVE); OCCULT BLOOD URINE NEGATIVE (NEGATIVE); PH URINE 5.5 (4.5-8.0); PROTEIN URINE NEGATIVE (NEGATIVE); SPECIFIC GRAVITY URINE 1.036 (1.005-1.030); UROBILINOGEN URINE 0.2 E.U./dL (0.2-1.0)
[2019-09-15] MEDS ORDERED: DEXTROSE 50% WATER 50ML SYRINGE IV PRN (07:45)
[2019-09-15 08:00] VITALS: BP 134/92
[2019-09-15 08:04] LABS: *AMPHETAMINES SCREEN URINE NEGATIVE (NEGATIVE); *BARBITURATES SCREEN URINE NEGATIVE (NEGATIVE)
[2019-09-15 08:05] LABS: *BENZODIAZEPINES SCREEN URINE NEGATIVE (NEGATIVE); *COCAINE SCREEN URINE NEGATIVE (NEGATIVE); CANNABINOID URINE SCREEN NEGATIVE (NEGATIVE); METHADONE URINE SCREEN NEGATIVE (NEGATIVE); OPIATES URINE SCREEN NEGATIVE (NEGATIVE); PHENCYCLIDINE URINE SCREEN NEGATIVE (NEGATIVE)
[2019-09-15] MEDS: FAMOTIDINE 20MG/2ML VIAL IV SCH ×2 (08:49→21:38)
[2019-09-15] MEDS: APIXABAN 5 MG TABLET PO SCH ×2 (08:49→18:02)
[2019-09-15] MEDS: ASPIRIN 81MG TABLET PO SCH (08:50)
[2019-09-15] MEDS: FLUTICASONE PROPIONATE 50MCG/SPRAY BOTTLE BOTHNSTRLS SCH ×2 (10:11→21:37)
[2019-09-15 12:00] VITALS: BP 129/84
[2019-09-15] MEDS: BLOOD SUGAR DIAGNOSTIC STRIP TEST SCH ×3 (13:16→21:38)
[2019-09-15] MEDS: IPRATROPIUM/ALBUTEROL 0.5-3(2.5)MG/3ML NEB HHN SCH ×3 (13:55→21:18)
[2019-09-15 16:00] VITALS: BP 117/78
[2019-09-15 16:06] LABS: PLATELET ESTIMATE NORMAL
[2019-09-15] MEDS ORDERED: LIRA0.6P SQ (16:07)
[2019-09-15] MEDS ORDERED: ALBU18HF2 IH (16:08)
[2019-09-15] MEDS ORDERED: APIX5TAB MT (16:09)
[2019-09-15 20:00] VITALS: BP 130/84
[2019-09-15] MEDS: LORATADINE 10MG TABLET PO SCH (21:38)
[2019-09-16] MEDS: TEMAZEPAM 15MG CAPSULE PO PRN (00:14)
[2019-09-16 00:15] VITALS: BP 129/79
[2019-09-16] MEDS: IPRATROPIUM/ALBUTEROL 0.5-3(2.5)MG/3ML NEB HHN SCH ×3 (01:11→09:06)
[2019-09-16] MEDS: METHYLPREDNISOLONE SOD SUCC 40 MG/ML VIAL IV SCH ×2 (03:54→11:39)
[2019-09-16 03:58] VITALS: BP 107/66
[2019-09-16 06:42] LABS: HEMATOCRIT. 28.8 % (36.0-48.0); HEMOGLOBIN. 9.1 g/dL (12.0-16.0); MEAN CORPUSCULAR HEMOGLOBIN 23.5 pg (28.0-32.0); MEAN CORPUSCULAR VOLUME 74.7 fL (81.0-99.0); MEAN PLATELET VOLUME 9.6 fl (7.4-10.4); PLATELET 148 x1000/uL (130-400); RED BLOOD CELL COUNT 3.86 mill/uL (4.2-5.4); RED CELL DISTRIBUTION WIDTH 25.2 % (11.6-14.6)
[2019-09-16] MEDS: BLOOD SUGAR DIAGNOSTIC STRIP TEST SCH ×2 (06:49→12:38)
[2019-09-16 08:04] VITALS: BP 132/83
[2019-09-16] MEDS: ASPIRIN 81MG TABLET PO SCH (09:00)
[2019-09-16] MEDS: FAMOTIDINE 20MG/2ML VIAL IV SCH (09:13)
[2019-09-16] MEDS: APIXABAN 5 MG TABLET PO SCH (09:14)
[2019-09-16] MEDS: FLUTICASONE PROPIONATE 50MCG/SPRAY BOTTLE BOTHNSTRLS SCH (09:14)
[2019-09-16 11:54] VITALS: BP 136/85
[2019-09-16 12:00] LABS: PLATELET ESTIMATE NORMAL
[2019-09-16] MEDS ORDERED: FLUT1DIS3 INH (13:01)
[2019-09-16 13:22] VITALS: BP 136/85
[2019-09-23 05:10] LABS: VITAMIN B1 THIAMINE WHOLE BLD 52.6 nmol/L (66.5-200.0)
== END 2019-09-16 14:25 | disposition home or self-care (01) | DRG 189 ==
LOC: ER 10:34 → 6WST 11:54 → EDBEDREQ 12:05 → ENRESERV 15:20
PROVIDERS: ADMIT Family Medicine Adult Medicine; ATTEND Family Medicine Adult Medicine
DX: J96.00 Acute respiratory failure, unspecified whether with hypoxia or hypercapnia (principal); N17.0 Acute kidney failure with tubular necrosis; I13.0 Hypertensive heart and chronic kidney disease with heart failure and stage 1 through stage 4 chronic kidney disease, or unspecified chronic kidney disease; J44.1 Chronic obstructive pulmonary disease with (acute) exacerbation; K52.9 Noninfective gastroenteritis and colitis, unspecified; I50.9 Heart failure, unspecified; J00 Acute nasopharyngitis [common cold]; N18.9 Chronic kidney disease, unspecified; I25.10 Atherosclerotic heart disease of native coronary artery without angina pectoris; D50.9 Iron deficiency anemia, unspecified; D52.9 Folate deficiency anemia, unspecified; E11.22 Type 2 diabetes mellitus with diabetic chronic kidney disease; E11.649 Type 2 diabetes mellitus with hypoglycemia without coma; E87.8 Other disorders of electrolyte and fluid balance, not elsewhere classified; F32.9 Major depressive disorder, single episode, unspecified; Z96.651 Presence of right artificial knee joint; J43.9 Emphysema, unspecified; Z98.84 Bariatric surgery status; Z88.6 Allergy status to analgesic agent; Z79.01 Long term (current) use of anticoagulants; Z86.73 Personal history of transient ischemic attack (TIA), and cerebral infarction without residual deficits; Z86.711 Personal history of pulmonary embolism; I25.2 Old myocardial infarction; Z88.0 Allergy status to penicillin; Z86.718 Personal history of other venous thrombosis and embolism; Z79.84 Long term (current) use of oral hypoglycemic drugs; Z88.8 Allergy status to other drugs, medicaments and biological substances; Z79.4 Long term (current) use of insulin; Z79.899 Other long term (current) drug therapy; Z90.49 Acquired absence of other specified parts of digestive tract
CPT/HCPCS: 36415; 71045; 71275; 74018; 74176; 80048; 80053; 80076; 80305; 81003; 82105; 82270; 82378; 82607; 82652; 82728; 82962; 83540; 83550; 83735; 83880; 83970; 84075; 84100; 84207; 84425; 84484; 85025; 85379; 86301; 86304; 87015; 87045; 87427; 87449; 87493; 93005; 93970; 94640; 99291; J2405; J2920; J2930; J3475; J3490; J7611; J7620; Q9963; Q9967

== ENCOUNTER 2020-01-07 15:56 | Emergency (ER) | payer MEDICARE, MEDICAID ==
[~2020-01-07] VITALS: Ht 160 cm; Wt 63.0 kg
[~2020-01-07 15:56] MED LIST changes: +ALBU18HF2 IH; +APIX5TAB MT; -ESOM40CA53 PO; +FLUT1DIS3 INH; -INSU100I19 SQ; -TEMA7.5C PO
[2020-01-07] MEDS ORDERED: ALBUTEROL (0.083%) 2.5MG/3ML NEB HHN STA (17:14)
[2020-01-07] MEDS ORDERED: ONDANSETRON HCL 4MG/2ML INJ IV STA (17:14)
[2020-01-07] MEDS ORDERED: IPRATROPIUM BROMIDE (0.02%) 0.5MG/2.5ML NEB HHN STA (17:14)
[2020-01-07 17:35] LABS: CHLORIDE 117 mEq/L (98-107)
[2020-01-07 17:37] LABS: HEMATOCRIT. 33.2 % (36.0-48.0); HEMOGLOBIN. 10.8 g/dL (12.0-16.0); MEAN CORPUSCULAR HEMOGLOBIN 27.9 pg (28.0-32.0); MEAN CORPUSCULAR VOLUME 85.8 fL (81.0-99.0); MEAN PLATELET VOLUME 8.4 fl (7.4-10.4); PLATELET 255 x1000/uL (130-400); RED BLOOD CELL COUNT 3.86 mill/uL (4.2-5.4); RED CELL DISTRIBUTION WIDTH 20.2 % (11.6-14.6)
[2020-01-07 18:05] LABS: PLATELET ESTIMATE NORMAL
[2020-01-07] MEDS ORDERED: SODIUM CHLORIDE 0.9% 500 ML IV ONE (19:45)
[2020-01-07 21:00] VITALS: BP 128/98
== END 2020-01-07 21:10 | disposition home or self-care (01) ==
LOC: ER 15:56
DX: J44.9 Chronic obstructive pulmonary disease, unspecified (principal); R55 Syncope and collapse; R06.00 Dyspnea, unspecified; R42 Dizziness and giddiness; I25.2 Old myocardial infarction; E11.9 Type 2 diabetes mellitus without complications; I11.9 Hypertensive heart disease without heart failure; Z86.73 Personal history of transient ischemic attack (TIA), and cerebral infarction without residual deficits; Z79.899 Other long term (current) drug therapy; Z88.8 Allergy status to other drugs, medicaments and biological substances; Z88.0 Allergy status to penicillin; Z88.6 Allergy status to analgesic agent
CPT/HCPCS: 36415; 71045; 80053; 83880; 84443; 84484; 85025; 93005; 94640; 96361; 96374; 99285; J2405

== ENCOUNTER 2022-09-25 12:59 | Inpatient (IN) | payer OTHER, MEDICAID ==
[~2022-09-25] VITALS: Ht 160 cm; Wt 79.4 kg
[~2022-09-25 12:59] MED LIST changes: -CETI10TA10 PO; +CETI10TA11 PO; +MIRT-89 MT; -MIRT15TA6 MT
[2022-09-25] MEDS ORDERED: SODIUM CHLORIDE 0.9% 1,000 ML IV ONE ×2 (13:30→19:00)
[2022-09-25 14:47] LABS: HEMATOCRIT. 27.7 % (36.0-48.0); HEMOGLOBIN. 8.9 g/dL (12.0-16.0); MEAN CORPUSCULAR HEMOGLOBIN 28.1 pg (28.0-32.0); MEAN CORPUSCULAR VOLUME 87.3 fL (81.0-99.0); MEAN PLATELET VOLUME 8.6 fl (7.4-10.4); PLATELET 345 x1000/uL (130-400); RED BLOOD CELL COUNT 3.17 mill/uL (4.2-5.4); RED CELL DISTRIBUTION WIDTH 15.4 % (11.6-14.6)
[2022-09-25 14:54] LABS: CHLORIDE 114 mEq/L (98-107)
[2022-09-25 16:12] LABS: PLATELET ESTIMATE NORMAL
[2022-09-25 16:48] LABS: CLARITY URINE CLEAR (CLEAR); COLOR URINE YELLOW (YELLOW); KETONES URINE NEGATIVE (NEGATIVE); LEUKOCYTE ESTERASE URINE 2+ (NEGATIVE); NITRITE URINE NEGATIVE (NEGATIVE); OCCULT BLOOD URINE NEGATIVE (NEGATIVE); PH URINE 5.5 (4.5-8.0); PROTEIN URINE NEGATIVE (NEGATIVE); SPECIFIC GRAVITY URINE 1.014 (1.005-1.030); UROBILINOGEN URINE 0.2 E.U./dL (0.2-1.0)
[2022-09-25] MEDS ORDERED: LEVOFLOXACIN 750MG PREMIX 150 ML IV ONE (17:45)
[2022-09-25 22:45] VITALS: BP 123/84
[2022-09-26] VITALS: BP 126/79
[2022-09-26] MEDS ORDERED: ACETAMINOPHEN 325MG TABLET PO PRN ×2 (01:15→13:45)
[2022-09-26] MEDS ORDERED: IPRATROPIUM/ALBUTEROL 0.5-3(2.5)MG/3ML NEB HHN PRN (01:45)
[2022-09-26] MEDS ORDERED: DOCUSATE SODIUM 100MG CAPSULE PO PRN (01:45)
[2022-09-26] MEDS ORDERED: LORAZEPAM 0.5MG TABLET PO PRN (01:45)
[2022-09-26] MEDS ORDERED: CLONIDINE 0.1MG TABLET PO PRN (01:45)
[2022-09-26] MEDS ORDERED: CEFTRIAXONE 1 G PREMIX 50 ML IV SCH (01:45)
[2022-09-26] MEDS ORDERED: SODIUM CHLORIDE 0.9% 1,000 ML IV SCH (02:30)
[2022-09-26] MEDS ORDERED: DEXTROSE 50% WATER 50ML SYRINGE IV PRN (03:00)
[2022-09-26 04:00] VITALS: BP 125/83
[2022-09-26] MEDS: CEFTRIAXONE 1,000 MG in DEXTROSE 5% WATER 50 ML IV SCH (06:36)
[2022-09-26 06:51] LABS: CREATINE KINASE 123 IU/L (26-192); HDL CHOLESTEROL 56 mg/dL (40-59); LDL CHOLESTEROL 85 mg/dL (5-100)
[2022-09-26] MEDS: INSULIN LISPRO 100 UNITS/ML SUBCUT SCH ×4 (07:20→21:00)
[2022-09-26] MEDS: BLOOD SUGAR DIAGNOSTIC STRIP TEST SCH ×4 (07:20→21:25)
[2022-09-26 08:00] VITALS: BP 132/65
[2022-09-26 12:00] VITALS: BP 121/72
[2022-09-26] MEDS: DEXT 5%/0.9% NACL 1,000 ML IV SCH (13:00)
[2022-09-26] MEDS: ONDANSETRON HCL 4MG/2ML INJ IV PRN (13:07)
[2022-09-26] MEDS ORDERED: NALOXONE HCL 0.4MG/ML VIAL IV PRN (13:15)
[2022-09-26 16:00] VITALS: BP 131/72
[2022-09-26 20:00] VITALS: BP 127/69
[2022-09-26] MEDS: HYDROCODONE/ACETAMINOPHEN 5/325MG TABLET PO PRN (23:46)
[2022-09-27] VITALS (7 sets, daily range): BP systolic 107–131; BP diastolic 53–81
[2022-09-27] MEDS: DEXT 5%/0.9% NACL 1,000 ML IV SCH ×2 (02:59→15:40)
[2022-09-27] MEDS: INSULIN LISPRO 100 UNITS/ML SUBCUT SCH ×4 (06:16→22:03)
[2022-09-27] MEDS: CEFTRIAXONE 1,000 MG in DEXTROSE 5% WATER 50 ML IV SCH (06:16)
[2022-09-27] MEDS: BLOOD SUGAR DIAGNOSTIC STRIP TEST SCH ×4 (06:16→21:00)
[2022-09-27 07:03] LABS: HEMATOCRIT. 25.3 % (36.0-48.0); HEMOGLOBIN. 8.4 g/dL (12.0-16.0); MEAN CORPUSCULAR HEMOGLOBIN 28.8 pg (28.0-32.0); MEAN CORPUSCULAR VOLUME 86.7 fL (81.0-99.0); MEAN PLATELET VOLUME 8.2 fl (7.4-10.4); PLATELET 295 x1000/uL (130-400); RED BLOOD CELL COUNT 2.92 mill/uL (4.2-5.4); RED CELL DISTRIBUTION WIDTH 15.1 % (11.6-14.6)
[2022-09-27 15:49] LABS: PLATELET ESTIMATE NORMAL
[2022-09-28] VITALS (9 sets, daily range): BP systolic 100–135; BP diastolic 59–78
[2022-09-28] MEDS: HYDROCODONE/ACETAMINOPHEN 5/325MG TABLET PO PRN (00:27)
[2022-09-28] MEDS: DEXT 5%/0.9% NACL 1,000 ML IV SCH ×2 (05:09→23:20)
[2022-09-28] MEDS: CEFTRIAXONE 1,000 MG in DEXTROSE 5% WATER 50 ML IV SCH (05:09)
[2022-09-28] MEDS: INSULIN LISPRO 100 UNITS/ML SUBCUT SCH ×4 (06:26→21:00)
[2022-09-28] MEDS: BLOOD SUGAR DIAGNOSTIC STRIP TEST SCH ×4 (06:26→21:00)
[2022-09-28] MEDS: ONDANSETRON HCL 4MG/2ML INJ IV PRN (19:03)
[2022-09-29] VITALS: BP 126/73
[2022-09-29] MEDS: HYDROCODONE/ACETAMINOPHEN 5/325MG TABLET PO PRN (01:57)
[2022-09-29 04:00] VITALS: BP 111/62
[2022-09-29] MEDS: INSULIN LISPRO 100 UNITS/ML SUBCUT SCH ×4 (06:44→21:00)
[2022-09-29] MEDS: CEFTRIAXONE 1,000 MG in DEXTROSE 5% WATER 50 ML IV SCH (06:44)
[2022-09-29] MEDS: BLOOD SUGAR DIAGNOSTIC STRIP TEST SCH ×4 (06:44→21:19)
[2022-09-29 08:00] VITALS: BP 98/64
[2022-09-29 12:00] VITALS: BP 132/83
[2022-09-29 15:59] VITALS: BP 128/63
[2022-09-29 20:00] VITALS: BP 126/65
[2022-09-30] VITALS: BP 132/70
[2022-09-30] MEDS: DEXT 5%/0.9% NACL 1,000 ML IV SCH (00:01)
[2022-09-30] MEDS: HYDROCODONE/ACETAMINOPHEN 5/325MG TABLET PO PRN (00:09)
[2022-09-30 04:00] VITALS: BP 135/68
[2022-09-30] MEDS: CEFTRIAXONE 1,000 MG in DEXTROSE 5% WATER 50 ML IV SCH (05:42)
[2022-09-30 06:57] LABS: BASOPHILS % 0.6 % (0.0-2.0); EOSINOPHILS % 3.2 % (0.0-5.0); HEMATOCRIT. 25.1 % (36.0-48.0); HEMOGLOBIN. 8.4 g/dL (12.0-16.0); LYMPHOCYTES % 18.7 % (20.0-50.0); MEAN CORPUSCULAR HEMOGLOBIN 28.8 pg (28.0-32.0); MEAN CORPUSCULAR VOLUME 86.2 fL (81.0-99.0); MEAN PLATELET VOLUME 8.2 fl (7.4-10.4); MONOCYTES % 12.8 % (2.0-8.0); NEUTROPHILS % 64.7 % (40.0-76.0); PLATELET 255 x1000/uL (130-400); RED BLOOD CELL COUNT 2.91 mill/uL (4.2-5.4); RED CELL DISTRIBUTION WIDTH 15.1 % (11.6-14.6)
[2022-09-30] MEDS: BLOOD SUGAR DIAGNOSTIC STRIP TEST SCH ×2 (07:00→12:28)
[2022-09-30] MEDS: INSULIN LISPRO 100 UNITS/ML SUBCUT SCH ×2 (07:20→12:20)
[2022-09-30 08:00] VITALS: BP 108/57
[2022-09-30 12:00] VITALS: BP 125/64
[2022-09-30 13:52] VITALS: BP 125/64
[2022-09-30 16:00] VITALS: BP 119/72
== END 2022-09-30 16:20 | disposition home or self-care (01) | DRG 638 ==
LOC: ER 12:59 → 3WST 18:49 → EDBEDREQTM 18:54 → EDBEDREQ 18:54
PROVIDERS: ADMIT Internal Medicine; ATTEND Internal Medicine
DX: E11.649 Type 2 diabetes mellitus with hypoglycemia without coma (principal); N39.0 Urinary tract infection, site not specified; N17.0 Acute kidney failure with tubular necrosis; E86.0 Dehydration; J44.9 Chronic obstructive pulmonary disease, unspecified; I10 Essential (primary) hypertension; D72.825 Bandemia; Z88.0 Allergy status to penicillin; Z88.8 Allergy status to other drugs, medicaments and biological substances; Z86.73 Personal history of transient ischemic attack (TIA), and cerebral infarction without residual deficits; Z85.07 Personal history of malignant neoplasm of pancreas; Z79.899 Other long term (current) drug therapy; I25.2 Old myocardial infarction; Z79.51 Long term (current) use of inhaled steroids
CPT/HCPCS: 36415; 71045; 76700; 80048; 80053; 80061; 81003; 82533; 82550; 82553; 82962; 83735; 84484; 85025; 87015; 87045; 87427; 87449; 87493; 89055; 93005; 93306; 97162; 97166; 99285; J0696; J1956; J2405; J7030; J7042; J7060

== ENCOUNTER 2023-06-08 12:12 | Inpatient (IN) | payer MEDICARE, MEDICAID ==
[~2023-06-08] VITALS: Ht 152.4 cm; Wt 67.2 kg
[~2023-06-08 12:12] MED LIST changes: -ALBU18HF2 IH; +ATROV3 BOTHNSTRLS; -CETI10TA11 PO; +FINE10TA PO; +FLUT1AER INH; -FLUT1DIS3 INH; +FLUT9.9S BOTHNSTRLS; +FOLI0.4T6 PO; +GABA-532 PO; +LANS30CA55 PO; +LIPA1CAP18 PO; -LIRA0.6P SQ; +LORA10TA7 PO; -METF-414 MT; +RAME8TAB PO; +TRAZ-251 PO
[2023-06-08 13:52] LABS: HEMATOCRIT. 29.1 % (36.0-48.0); HEMOGLOBIN. 9.5 g/dL (12.0-16.0); MEAN CORPUSCULAR HEMOGLOBIN 28.7 pg (28.0-32.0); MEAN CORPUSCULAR HGB CONC 32.8 g/dL (31.0-37.0); MEAN CORPUSCULAR VOLUME 87.7 fL (81.0-99.0); MEAN PLATELET VOLUME 9.4 fl (7.4-10.4); PLATELET 273 x1000/uL (130-400); RED BLOOD CELL COUNT 3.31 mill/uL (4.2-5.4); RED CELL DISTRIBUTION WIDTH 16.1 % (11.6-14.6); WHITE BLOOD COUNT 7.7 x1000/uL (4.5-11.0)
[2023-06-08 14:01] LABS: DIFFERENTIAL COMMENT 1; INDEX HEMOLYSI 4 (1-3); INDEX ICTERIC 1 (1-4); INDEX LIPEMIC 1 (1-3)
[2023-06-08 14:11] LABS: ALANINE AMINOTRANSFERASE 19 IU/L (13-61); ALBUMIN 3.1 g/dL (3.4-5.0); ASPARTATE AMINOTRANSFERASE 31 IU/L (15-37); BILIRUBIN TOTAL 0.8 mg/dL (0.1-1.0); CALCIUM 8.7 mg/dL (8.5-10.1); CARBON DIOXIDE 15 mEq/L (21-32); CREATININE 1.3 mg/dL (0.6-1.3); GLUCOSE 59 mg/dL (70-105); NT PRO B-TYPE NATRIURETIC PEP 943 pg/mL (5-125); PROTEIN TOTAL 7.2 g/dL (6.0-8.3); TROPONIN I HIGH SENSITIVITY 10 ng/L (<54); UREA NITROGEN BLOOD 15 mg/dL (7-21)
[2023-06-08 14:15] LABS: CHLORIDE 100 mEq/L (98-107); SODIUM 132 mEq/L (136-145)
[2023-06-08 14:17] LABS: POTASSIUM 4.1 mEq/L (3.5-5.1)
[2023-06-08 15:58] LABS: TROPONIN I HIGH SENSITIVITY 12 ng/L (<54)
[2023-06-08] MEDS ORDERED: DEXTROSE 10% WATER 500 ML IV NR (16:00)
[2023-06-08] MEDS ORDERED: MAGNESIUM/ALUMINUM HYDROXIDE/SIMETHICONE 30ML UDC PO PRN (17:15)
[2023-06-08] MEDS ORDERED: DOCUSATE SODIUM 100MG CAPSULE PO PRN (17:15)
[2023-06-08] MEDS ORDERED: ACETAMINOPHEN 325MG TABLET PO PRN ×3 (17:15→20:15)
[2023-06-08] MEDS ORDERED: IPRATROPIUM/ALBUTEROL 0.5-3(2.5)MG/3ML NEB HHN PRN (17:15)
[2023-06-08] MEDS ORDERED: ONDANSETRON HCL 4MG/2ML INJ IV PRN (17:30)
[2023-06-08 18:00] LABS: CLARITY URINE CLEAR (CLEAR); COLOR URINE YELLOW (YELLOW); GLUCOSE URINE NEGATIVE (NEGATIVE); KETONES URINE 3+ (NEGATIVE); LEUKOCYTE ESTERASE URINE NEGATIVE (NEGATIVE); NITRITE URINE NEGATIVE (NEGATIVE); OCCULT BLOOD URINE NEGATIVE (NEGATIVE); PH URINE 5.5 (4.5-8.0); PROTEIN URINE TRACE (NEGATIVE); UROBILINOGEN URINE 0.2 E.U./dL (0.2-1.0)
[2023-06-08 18:15] LABS: *AMPHETAMINES SCREEN URINE NEGATIVE (NEGATIVE); *BARBITURATES SCREEN URINE NEGATIVE (NEGATIVE); *BENZODIAZEPINES SCREEN URINE NEGATIVE (NEGATIVE); *COCAINE SCREEN URINE NEGATIVE (NEGATIVE); CANNABINOID URINE SCREEN NEGATIVE (NEGATIVE); ECSTASY MDMA SCREEN URINE NEGATIVE (NEGATIVE); METHADONE URINE SCREEN NEGATIVE (NEGATIVE); OPIATES URINE SCREEN PRESUMTIVE POSITIVE (NEGATIVE); PHENCYCLIDINE URINE SCREEN NEGATIVE (NEGATIVE)
[2023-06-08] MEDS ORDERED: DEXT 5%/0.45% NACL 500ML 500 ML IV SCH (18:45)
[2023-06-08] MEDS ORDERED: DEXTROSE 50% WATER 50ML SYRINGE IV PRN ×2 (19:00→20:30)
[2023-06-08 19:48] LABS: INDEX HEMOLYSI 3 (1-3); INDEX ICTERIC 1 (1-4); INDEX LIPEMIC 1 (1-3)
[2023-06-08 19:52] LABS: IRON 68 ug/dL (50-175); TOTAL IRON BINDING CAPACITY 205 ug/dL (250-450)
[2023-06-08] MEDS: DEXT 5%/0.45% NACL 1000ML 1,000 ML IV SCH (20:01)
[2023-06-08] MEDS: FOLIC ACID/VITAMIN B COMP W-C TABLET PO SCH ×2 (20:15→22:49)
[2023-06-08] MEDS ORDERED: FLUTICASONE/VILANTEROL 200-25 BLST.W.DEV ORI SCH (20:15)
[2023-06-08 20:41] LABS: BACTERIA URINE 1+; RBC URINE 0-2 /hpf (0-2); SQUAMOUS EPITHELIAL CELL URINE 1+ /lpf (RARE/1+); WBC URINE 0-2 /hpf (0-2)
[2023-06-08] MEDS: PANTOPRAZOLE SODIUM 40 MG/VIAL IV SCH (20:46)
[2023-06-08] MEDS: INSULIN LISPRO 100 UNITS/ML SUBCUT SCH (20:47)
[2023-06-08] MEDS: BLOOD SUGAR DIAGNOSTIC STRIP TEST SCH (20:47)
[2023-06-08] MEDS ORDERED: BLOOD SUGAR DIAGNOSTIC STRIP TEST SCH (21:00)
[2023-06-08 21:15] LABS: ANISOCYTOSIS 1+; HYPOCHROMASIA 1+; NUCLEATED RED BLOOD CELLS 1 /100 WBC; PLATELET ESTIMATE NORMAL
[2023-06-08 21:31] LABS: LACTIC ACID 4.1 mmol/L (0.4-2.0)
[2023-06-08 21:46] LABS: FOLIC ACID (FOLATE) SERUM 5.3 ng/mL (>5.38)
[2023-06-08] MEDS: APIXABAN 2.5 MG TABLET PO SCH (22:48)
[2023-06-09] VITALS (10 sets, daily range): BP systolic 92–136; BP diastolic 51–88; PULSE 76–96; RESP 16–20; TEMP 96.4–98.6; O2SAT 97–98
[2023-06-09 04:30] LABS: CREATINE KINASE MB FRACTION 2.1 ng/mL (0.5-3.6)
[2023-06-09] MEDS: BLOOD SUGAR DIAGNOSTIC STRIP TEST SCH ×4 (06:24→21:00)
[2023-06-09] MEDS: INSULIN LISPRO 100 UNITS/ML SUBCUT SCH ×4 (08:10→21:00)
[2023-06-09] MEDS: BUDESONIDE 0.5MG/2ML NEB HHN SCH ×2 (08:28→20:40)
[2023-06-09] MEDS: ALBUTEROL (0.083%) 2.5MG/3ML NEB HHN SCH ×4 (08:28→20:41)
[2023-06-09] MEDS: APIXABAN 2.5 MG TABLET PO SCH ×2 (09:32→22:16)
[2023-06-09] MEDS: FOLIC ACID/VITAMIN B COMP W-C TABLET PO SCH (09:32)
[2023-06-09] MEDS: PANTOPRAZOLE SODIUM 40 MG/VIAL IV SCH (09:32)
[2023-06-09 09:49] LABS: CHLORIDE 93 mEq/L (98-107); INDEX HEMOLYSI 1 (1-3); INDEX ICTERIC 1 (1-4); INDEX LIPEMIC 1 (1-3); SODIUM 129 mEq/L (136-145)
[2023-06-09 09:50] LABS: HEMATOCRIT. 28.6 % (36.0-48.0); HEMOGLOBIN. 9.6 g/dL (12.0-16.0); MEAN CORPUSCULAR HGB CONC 33.7 g/dL (31.0-37.0); MEAN CORPUSCULAR VOLUME 86.1 fL (81.0-99.0); PLATELET 279 x1000/uL (130-400); RED BLOOD CELL COUNT 3.32 mill/uL (4.2-5.4); RED CELL DISTRIBUTION WIDTH 15.2 % (11.6-14.6); WHITE BLOOD COUNT 9.4 x1000/uL (4.5-11.0)
[2023-06-09 09:56] LABS: DIFFERENTIAL COMMENT 1
[2023-06-09 10:00] LABS: CREATINE KINASE MB FRACTION 2.6 ng/mL (0.5-3.6)
[2023-06-09 10:06] LABS: ALANINE AMINOTRANSFERASE 20 IU/L (13-61); ALBUMIN 3.2 g/dL (3.4-5.0); ASPARTATE AMINOTRANSFERASE 27 IU/L (15-37); BILIRUBIN TOTAL 0.9 mg/dL (0.1-1.0); CALCIUM 9.3 mg/dL (8.5-10.1); CARBON DIOXIDE 21 mEq/L (21-32); CHOLESTEROL 150 mg/dL (<200); CREATININE 1.4 mg/dL (0.6-1.3); GLUCOSE 95 mg/dL (70-105); HDL CHOLESTEROL 66 mg/dL (40-59); LDL CHOLESTEROL 71 mg/dL (5-100); PROTEIN TOTAL 7.3 g/dL (6.0-8.3); T4 FREE 1.38 ng/dL (0.76-1.46); THYROID STIMULATING HORMONE 0.46 uIU/mL (0.36-3.74); TRIGLYCERIDE 130 mg/dL (0-150); UREA NITROGEN BLOOD 12 mg/dL (7-21)
[2023-06-09 10:13] LABS: POTASSIUM 2.6 mEq/L (3.5-5.1)
[2023-06-09] MEDS ORDERED: POTASSIUM CHLORIDE 20MEQ TABLET SR PO NR (11:00)
[2023-06-09] MEDS ORDERED: POTASSIUM CHLORIDE INJ 40 MEQ in DEXT 5% WATER 250 ML IV NR (12:30)
[2023-06-09] MEDS: DEXT 5%/0.45% NACL 1000ML 1,000 ML IV SCH (13:40)
[2023-06-09 13:48] LABS: PHOSPHORUS 1.8 mg/dL (2.5-4.9)
[2023-06-09] MEDS: ACETAMINOPHEN 325MG TABLET PO PRN (15:44)
[2023-06-09] MEDS ORDERED: LEVOFLOXACIN 500MG PREMIX 100 ML IV NR (16:30)
[2023-06-09] MEDS: METRONIDAZOLE 500 MG PREMIX 100 ML IV SCH (16:58)
[2023-06-09] MEDS ORDERED: MAGNESIUM 2 G PREMIX 50 ML IV NR (17:30)
[2023-06-09] MEDS ORDERED: DIATR MEGLU/DIATRIZOATE SOLN 30ML PO NR (18:00)
[2023-06-09] MEDS ORDERED: DOCUSATE SODIUM 250MG CAPSULE PO SCH (18:00)
[2023-06-09] MEDS: SODIUM CHLORIDE 0.9% 1,000 ML IV SCH (18:12)
[2023-06-09 21:52] LABS: CHLORIDE 96 mEq/L (98-107); INDEX HEMOLYSI 1 (1-3); INDEX ICTERIC 1 (1-4); INDEX LIPEMIC 1 (1-3); POTASSIUM 4.3 mEq/L (3.5-5.1); SODIUM 129 mEq/L (136-145)
[2023-06-09 22:00] LABS: ALANINE AMINOTRANSFERASE 22 IU/L (13-61); ASPARTATE AMINOTRANSFERASE 21 IU/L (15-37); BILIRUBIN TOTAL 0.7 mg/dL (0.1-1.0); CALCIUM 9.5 mg/dL (8.5-10.1); CARBON DIOXIDE 20 mEq/L (21-32); GLUCOSE 102 mg/dL (70-105); PROTEIN TOTAL 6.8 g/dL (6.0-8.3); UREA NITROGEN BLOOD 14 mg/dL (7-21)
[2023-06-09] MEDS: GABAPENTIN 400MG CAPSULE PO SCH (22:16)
[2023-06-09 23:46] LABS: PLATELET ESTIMATE NORMAL
[2023-06-10] VITALS (9 sets, daily range): BP systolic 99–122; BP diastolic 49–76; PULSE 74–97; RESP 16–20; TEMP 97.3–98.9; O2SAT 96–97
[2023-06-10] MEDS: ALBUTEROL (0.083%) 2.5MG/3ML NEB HHN SCH ×4 (01:16→21:00)
[2023-06-10] MEDS: METRONIDAZOLE 500 MG PREMIX 100 ML IV SCH ×3 (01:48→17:44)
[2023-06-10] MEDS: BLOOD SUGAR DIAGNOSTIC STRIP TEST SCH ×4 (07:40→21:45)
[2023-06-10] MEDS: INSULIN LISPRO 100 UNITS/ML SUBCUT SCH ×4 (08:10→21:00)
[2023-06-10 08:29] LABS: HEMATOCRIT 25.1 % (36.0-48.0); HEMOGLOBIN 8.4 g/dL (12.0-16.0); MEAN CORPUSCULAR HEMOGLOBIN 29.1 pg (28.0-32.0); MEAN CORPUSCULAR HGB CONC 33.4 g/dL (31.0-37.0); MEAN CORPUSCULAR VOLUME 87.3 fL (81.0-99.0); PLATELET 240 x1000/uL (130-400); RED BLOOD CELL COUNT 2.88 mill/uL (4.2-5.4); RED CELL DISTRIBUTION WIDTH 16.1 % (11.6-14.6); WHITE BLOOD COUNT 7.8 x1000/uL (4.5-11.0)
[2023-06-10 08:30] LABS: ALBUMIN 2.8 g/dL (3.4-5.0); ASPARTATE AMINOTRANSFERASE 18 IU/L (15-37); CALCIUM 9.3 mg/dL (8.5-10.1); CARBON DIOXIDE 21 mEq/L (21-32); CHLORIDE 100 mEq/L (98-107); GLUCOSE 107 mg/dL (70-105); INDEX HEMOLYSI 1 (1-3); INDEX ICTERIC 1 (1-4); INDEX LIPEMIC 1 (1-3); POTASSIUM 4.1 mEq/L (3.5-5.1); SODIUM 132 mEq/L (136-145); UREA NITROGEN BLOOD 16 mg/dL (7-21)
[2023-06-10 08:33] LABS: BILIRUBIN TOTAL 0.7 mg/dL (0.1-1.0); CREATININE 2.4 mg/dL (0.6-1.3); PROTEIN TOTAL 6.1 g/dL (6.0-8.3)
[2023-06-10] MEDS: BUDESONIDE 0.5MG/2ML NEB HHN SCH ×2 (08:59→21:00)
[2023-06-10] MEDS ORDERED: POLYETHYLENE GLYCOL 3350 (17GM) 1 DOSE PACK PO SCH (09:00)
[2023-06-10] MEDS: PANTOPRAZOLE SODIUM 40 MG/VIAL IV SCH (09:03)
[2023-06-10] MEDS: LORATADINE 10MG TABLET PO SCH (09:03)
[2023-06-10] MEDS: FOLIC ACID/VITAMIN B COMP W-C TABLET PO SCH (09:03)
[2023-06-10] MEDS: APIXABAN 2.5 MG TABLET PO SCH ×2 (09:03→21:45)
[2023-06-10 09:08] LABS: ALANINE AMINOTRANSFERASE 15 IU/L (13-61)
[2023-06-10] MEDS: SODIUM CHLORIDE 0.9% 1,000 ML IV SCH ×2 (13:19→23:54)
[2023-06-10] MEDS ORDERED: DIATR MEGLU/DIATRIZOATE SOLN 30ML PO NR (14:30)
[2023-06-10] MEDS ORDERED: LEVOFLOXACIN 250MG PREMIX 50 ML IV SCH (16:30)
[2023-06-10] MEDS: IPRATROPIUM BROMIDE (0.02%) 0.5MG/2.5ML NEB HHN SCH (21:01)
[2023-06-10] MEDS: GABAPENTIN 400MG CAPSULE PO SCH (21:45)
[2023-06-10] MEDS: DEXTROSE 50% WATER 50ML SYRINGE IV PRN (22:13)
[2023-06-11] VITALS (10 sets, daily range): BP systolic 91–130; BP diastolic 47–82; PULSE 72–92; RESP 16–22; TEMP 97.2–98.2
[2023-06-11] MEDS: METRONIDAZOLE 500 MG PREMIX 100 ML IV SCH ×3 (00:46→17:09)
[2023-06-11] MEDS: ALBUTEROL (0.083%) 2.5MG/3ML NEB HHN SCH ×4 (01:41→21:41)
[2023-06-11 06:39] LABS: HEMATOCRIT 24.6 % (36.0-48.0); HEMOGLOBIN 8.2 g/dL (12.0-16.0); MEAN CORPUSCULAR HEMOGLOBIN 28.8 pg (28.0-32.0); MEAN CORPUSCULAR HGB CONC 33.4 g/dL (31.0-37.0); MEAN CORPUSCULAR VOLUME 86.2 fL (81.0-99.0); PLATELET 241 x1000/uL (130-400); RED BLOOD CELL COUNT 2.85 mill/uL (4.2-5.4); WHITE BLOOD COUNT 7.2 x1000/uL (4.5-11.0)
[2023-06-11] MEDS: BLOOD SUGAR DIAGNOSTIC STRIP TEST SCH ×4 (07:12→21:43)
[2023-06-11] MEDS: INSULIN LISPRO 100 UNITS/ML SUBCUT SCH ×4 (07:48→21:00)
[2023-06-11 07:55] LABS: CHLORIDE 105 mEq/L (98-107); INDEX HEMOLYSI 1 (1-3); INDEX ICTERIC 1 (1-4); INDEX LIPEMIC 1 (1-3); POTASSIUM 3.8 mEq/L (3.5-5.1); SODIUM 135 mEq/L (136-145)
[2023-06-11 08:04] LABS: ALANINE AMINOTRANSFERASE 18 IU/L (13-61); ALBUMIN 2.6 g/dL (3.4-5.0); ASPARTATE AMINOTRANSFERASE 16 IU/L (15-37); BILIRUBIN TOTAL 0.4 mg/dL (0.1-1.0); CALCIUM 9.5 mg/dL (8.5-10.1); CARBON DIOXIDE 24 mEq/L (21-32); CREATININE 2.1 mg/dL (0.6-1.3); GLUCOSE 82 mg/dL (70-105); PROTEIN TOTAL 5.8 g/dL (6.0-8.3); UREA NITROGEN BLOOD 13 mg/dL (7-21)
[2023-06-11] MEDS: DEXTROSE 50% WATER 50ML SYRINGE IV PRN ×2 (08:16→23:25)
[2023-06-11] MEDS: PANTOPRAZOLE SODIUM 40 MG/VIAL IV SCH (09:15)
[2023-06-11] MEDS: LORATADINE 10MG TABLET PO SCH (09:15)
[2023-06-11] MEDS: FOLIC ACID/VITAMIN B COMP W-C TABLET PO SCH (09:15)
[2023-06-11] MEDS: APIXABAN 2.5 MG TABLET PO SCH ×2 (09:16→22:01)
[2023-06-11] MEDS: SODIUM CHLORIDE 0.9% 1,000 ML IV SCH ×2 (09:16→20:29)
[2023-06-11] MEDS: BUDESONIDE 0.5MG/2ML NEB HHN SCH ×2 (09:30→21:41)
[2023-06-11] MEDS: ACETAMINOPHEN 325MG TABLET PO PRN (09:33)
[2023-06-11] MEDS: LEVOFLOXACIN 250MG PREMIX 50 ML IV SCH (12:48)
[2023-06-11] MEDS: TRAMADOL 50MG TABLET PO PRN (17:36)
[2023-06-11] MEDS: IPRATROPIUM BROMIDE (0.02%) 0.5MG/2.5ML NEB HHN SCH (21:49)
[2023-06-11] MEDS: GABAPENTIN 400MG CAPSULE PO SCH (22:01)
[2023-06-12] VITALS (10 sets, daily range): BP systolic 28–147; BP diastolic 71–85; PULSE 74–94; RESP 18–20; TEMP 97.2–97.9
[2023-06-12] MEDS: METRONIDAZOLE 500 MG PREMIX 100 ML IV SCH ×3 (01:16→17:07)
[2023-06-12] MEDS: ALBUTEROL (0.083%) 2.5MG/3ML NEB HHN SCH ×4 (01:24→20:58)
[2023-06-12] MEDS: ACETAMINOPHEN 325MG TABLET PO PRN (06:06)
[2023-06-12] MEDS: SODIUM CHLORIDE 0.9% 1,000 ML IV SCH ×2 (06:09→17:07)
[2023-06-12 06:33] LABS: HEMATOCRIT. 24.7 % (36.0-48.0); HEMOGLOBIN. 8.3 g/dL (12.0-16.0); MEAN CORPUSCULAR HGB CONC 33.5 g/dL (31.0-37.0); MEAN CORPUSCULAR VOLUME 86.5 fL (81.0-99.0); MEAN PLATELET VOLUME 8.3 fl (7.4-10.4); PLATELET 250 x1000/uL (130-400); RED BLOOD CELL COUNT 2.86 mill/uL (4.2-5.4); RED CELL DISTRIBUTION WIDTH 16.4 % (11.6-14.6); WHITE BLOOD COUNT 8.3 x1000/uL (4.5-11.0)
[2023-06-12 06:48] LABS: DIFFERENTIAL COMMENT 1
[2023-06-12 06:59] LABS: CALCIUM 8.9 mg/dL (8.5-10.1); CREATININE 1.9 mg/dL (0.6-1.3); POTASSIUM 3.7 mEq/L (3.5-5.1)
[2023-06-12] MEDS: INSULIN LISPRO 100 UNITS/ML SUBCUT SCH ×4 (07:23→20:56)
[2023-06-12] MEDS: BLOOD SUGAR DIAGNOSTIC STRIP TEST SCH ×4 (07:23→20:56)
[2023-06-12] MEDS: DEXTROSE 50% WATER 50ML SYRINGE IV PRN (07:29)
[2023-06-12] MEDS: LORATADINE 10MG TABLET PO SCH (09:33)
[2023-06-12] MEDS: FOLIC ACID/VITAMIN B COMP W-C TABLET PO SCH (09:33)
[2023-06-12] MEDS: TRAMADOL 50MG TABLET PO PRN ×2 (09:33→17:06)
[2023-06-12] MEDS: PANTOPRAZOLE SODIUM 40 MG/VIAL IV SCH (09:33)
[2023-06-12] MEDS: APIXABAN 2.5 MG TABLET PO SCH ×2 (09:35→21:13)
[2023-06-12] MEDS: IPRATROPIUM BROMIDE (0.02%) 0.5MG/2.5ML NEB HHN SCH ×2 (09:40→20:57)
[2023-06-12] MEDS: BUDESONIDE 0.5MG/2ML NEB HHN SCH ×2 (09:40→20:57)
[2023-06-12 16:59] LABS: ANISOCYTOSIS 1+; NUCLEATED RED BLOOD CELLS 5 /100 WBC; PLATELET ESTIMATE NORMAL
[2023-06-12] MEDS ORDERED: NALOXONE HCL 0.4MG/ML VIAL IV PRN (17:15)
[2023-06-12] MEDS: GABAPENTIN 400MG CAPSULE PO SCH (21:13)
[2023-06-13] VITALS (8 sets, daily range): BP systolic 133–149; BP diastolic 79–88; PULSE 76–87; RESP 18–20; TEMP 96.5–97.7; O2SAT 99
[2023-06-13] MEDS: ALBUTEROL (0.083%) 2.5MG/3ML NEB HHN SCH ×3 (00:45→14:23)
[2023-06-13] MEDS: IPRATROPIUM BROMIDE (0.02%) 0.5MG/2.5ML NEB HHN SCH (00:45)
[2023-06-13] MEDS: TRAMADOL 50MG TABLET PO PRN (01:09)
[2023-06-13] MEDS: SODIUM CHLORIDE 0.9% 1,000 ML IV SCH ×2 (01:09→11:32)
[2023-06-13] MEDS: METRONIDAZOLE 500 MG PREMIX 100 ML IV SCH ×2 (01:09→08:48)
[2023-06-13] MEDS: BLOOD SUGAR DIAGNOSTIC STRIP TEST SCH ×2 (06:44→12:38)
[2023-06-13] MEDS: BUDESONIDE 0.5MG/2ML NEB HHN SCH (08:06)
[2023-06-13] MEDS: INSULIN LISPRO 100 UNITS/ML SUBCUT SCH ×2 (08:10→12:38)
[2023-06-13] MEDS: PANTOPRAZOLE SODIUM 40 MG/VIAL IV SCH (08:48)
[2023-06-13] MEDS: FOLIC ACID/VITAMIN B COMP W-C TABLET PO SCH (08:49)
[2023-06-13] MEDS: LORATADINE 10MG TABLET PO SCH (08:49)
[2023-06-13] MEDS: APIXABAN 2.5 MG TABLET PO SCH (10:20)
[2023-06-13] MEDS: LEVOFLOXACIN 250MG PREMIX 50 ML IV SCH (10:20)
== END 2023-06-13 15:55 | disposition home or self-care (01) | DRG 392 ==
LOC: ER 13:01 → EDBEDREQ 14:40 → 7WST 15:53 → EDBEDREQTM 15:56 → EDBEDREQ 15:56
PROVIDERS: ADMIT Internal Medicine; ATTEND Internal Medicine
DX: K52.9 Noninfective gastroenteritis and colitis, unspecified (principal); E44.0 Moderate protein-calorie malnutrition; E86.0 Dehydration; E11.649 Type 2 diabetes mellitus with hypoglycemia without coma; E88.09 Other disorders of plasma-protein metabolism, not elsewhere classified; D64.9 Anemia, unspecified; N18.9 Chronic kidney disease, unspecified; I12.9 Hypertensive chronic kidney disease with stage 1 through stage 4 chronic kidney disease, or unspecified chronic kidney disease; G47.00 Insomnia, unspecified; I25.10 Atherosclerotic heart disease of native coronary artery without angina pectoris; E11.65 Type 2 diabetes mellitus with hyperglycemia; Z68.28 Body mass index [BMI] 28.0-28.9, adult; F39 Unspecified mood [affective] disorder; E11.22 Type 2 diabetes mellitus with diabetic chronic kidney disease; J45.909 Unspecified asthma, uncomplicated; K76.0 Fatty (change of) liver, not elsewhere classified; Z79.01 Long term (current) use of anticoagulants; Z79.51 Long term (current) use of inhaled steroids; Z86.73 Personal history of transient ischemic attack (TIA), and cerebral infarction without residual deficits; Z79.899 Other long term (current) drug therapy; Z85.07 Personal history of malignant neoplasm of pancreas; Z88.0 Allergy status to penicillin; Z90.49 Acquired absence of other specified parts of digestive tract; Z95.828 Presence of other vascular implants and grafts; Z98.84 Bariatric surgery status
CPT/HCPCS: 36415; 71045; 74174; 74176; 76700; 76856; 80048; 80053; 80061; 80305; 81003; 82550; 82553; 82607; 82728; 82746; 82962; 83036; 83540; 83550; 83605; 83735; 83880; 84100; 84145; 84439; 84443; 84484; 85025; 85027; 92610; 93005; 94640; 97116; 97162; 97166; 97530; 99285; C9113; J1956; J2405; J3475; J3480; J3490; J7030; J7060; J7626; Q9963

== ENCOUNTER 2024-07-08 10:26 | Emergency (ER) | payer MEDICARE, MEDICAID ==
[~2024-07-08] VITALS: Ht 167.6 cm; Wt 85.0 kg
[2024-07-08 10:28] VITALS: BP 128/88; PULSE 64; RESP 18; TEMP 98; O2SAT 94
[2024-07-08] MEDS ORDERED: ACETAMINOPHEN 325MG TABLET PO ONE (10:45)
[2024-07-08] MEDS ORDERED: TOPUD PO (12:19)
== END 2024-07-08 12:50 | disposition home or self-care (01) ==
LOC: ER 10:34
DX: M25.562 Pain in left knee (principal); I25.2 Old myocardial infarction; I10 Essential (primary) hypertension; E11.9 Type 2 diabetes mellitus without complications; I51.9 Heart disease, unspecified; Z88.0 Allergy status to penicillin; Z88.6 Allergy status to analgesic agent; Z88.5 Allergy status to narcotic agent; Z79.899 Other long term (current) drug therapy; Z98.890 Other specified postprocedural states; Z86.73 Personal history of transient ischemic attack (TIA), and cerebral infarction without residual deficits; W01.0XXA Fall on same level from slipping, tripping and stumbling without subsequent striking against object, initial encounter; Y93.89 Activity, other specified; Y92.89 Other specified places as the place of occurrence of the external cause; Y99.8 Other external cause status
CPT/HCPCS: 73562; 99283

== ENCOUNTER 2024-12-16 13:02 | Emergency (ER) | payer MEDICARE, MEDICAID ==
[~2024-12-16] VITALS: Ht 162.6 cm; Wt 85.0 kg
[~2024-12-16 13:02] MED LIST changes: -DOCU-150 MT; +DOCU-422 MT; +GABA-1180 PO; -GABA-532 PO; +TOPUD PO
[2024-12-16 13:14] VITALS: BP 116/68; PULSE 69; RESP 18; TEMP 36.8; O2SAT 97
[2024-12-16] MEDS ORDERED: TETRACAINE 0.5% OPHTH DROPS 4ML EACHEYE ONE (15:30)
[2024-12-16] MEDS ORDERED: FLUORESCEIN SODIUM 1MG/STRIP EACHEYE ONE (15:30)
== END 2024-12-16 16:11 | disposition home or self-care (01) ==
LOC: ER 13:15
DX: H11.32 Conjunctival hemorrhage, left eye (principal); E11.9 Type 2 diabetes mellitus without complications; I10 Essential (primary) hypertension; Z79.01 Long term (current) use of anticoagulants; Z79.899 Other long term (current) drug therapy; Z79.51 Long term (current) use of inhaled steroids; Z88.6 Allergy status to analgesic agent; Z88.5 Allergy status to narcotic agent; Z90.710 Acquired absence of both cervix and uterus; Z88.0 Allergy status to penicillin
CPT/HCPCS: 99281

== ENCOUNTER 2025-09-25 15:47 | Emergency (ER) | payer BC, MEDICAID ==
[~2025-09-25] VITALS: Ht 160 cm; Wt 63.0 kg
[2025-09-25 15:52] VITALS: BP 128/75; PULSE 64; RESP 18; TEMP 98; O2SAT 98
[2025-09-25 17:02] LABS: BASOPHILS % 0.8 % (0.0-2.0); EOSINOPHILS % 1.0 % (0.0-5.0); HEMATOCRIT. 32.5 % (36.0-48.0); HEMOGLOBIN. 10.5 g/dL (12.0-16.0); LYMPHOCYTES % 23.4 % (20.0-50.0); MEAN PLATELET VOLUME 8.0 fl (7.4-10.4); MONOCYTES % 5.9 % (2.0-8.0); NEUTROPHILS % 68.9 % (40.0-76.0); PLATELET 269 x1000/uL (130-400); RED BLOOD CELL COUNT 3.73 mill/uL (4.2-5.4); RED CELL DISTRIBUTION WIDTH 14.8 % (11.6-14.6)
[2025-09-25 17:14] LABS: CREATININE 1.9 mg/dL (0.6-1.0)
[2025-09-25 17:15] LABS: ETHANOL BLOOD < 10 mg/dL (<10); UREA NITROGEN BLOOD 21 mg/dL (9-23)
[2025-09-25 17:16] LABS: ASPARTATE AMINOTRANSFERASE 23 IU/L (<34)
[2025-09-25 17:17] LABS: BILIRUBIN DIRECT 0.2 mg/dL (<=3.0); BILIRUBIN TOTAL 0.4 mg/dL (0.1-1.0); PROTEIN TOTAL 7.7 g/dL (6.0-8.3)
[2025-09-25] MEDS ORDERED: ACETAMINOPHEN 325MG TABLET PO ONE (19:15)
[2025-09-25] MEDS ORDERED: ONDANSETRON 4MG ODT PO ONE (19:15)
[2025-09-25 20:47] LABS: TROPONIN I HIGH SENSITIVITY 15 ng/L (3.0-34)
== END 2025-09-25 20:10 | disposition home or self-care (01) ==
LOC: ER 15:47
DX: R10.13 Epigastric pain (principal); E11.9 Type 2 diabetes mellitus without complications; I10 Essential (primary) hypertension; J44.9 Chronic obstructive pulmonary disease, unspecified; M19.90 Unspecified osteoarthritis, unspecified site; Z79.01 Long term (current) use of anticoagulants; Z79.51 Long term (current) use of inhaled steroids; Z90.710 Acquired absence of both cervix and uterus; Z90.49 Acquired absence of other specified parts of digestive tract; Z79.899 Other long term (current) drug therapy; Z88.6 Allergy status to analgesic agent; Z88.5 Allergy status to narcotic agent; Z88.0 Allergy status to penicillin
CPT/HCPCS: 36415; 80048; 80076; 80320; 84484; 85025; 99283; Q0162; G0480